=== PATIENT | female | born 1940 | race Caucasian/White ===

== ENCOUNTER 2020-09-04 18:23 | Emergency (ER) | payer MEDICARE, MEDICAID, SELFPAY ==
[2020-09-04 18:38] VITALS: BP 137/67; PULSE 66; RESP 18; TEMP 36.6; O2SAT 97; BMI 24.7
--- NOTE | 2020-09-04 18:50 | W.ED.EXTPRO ---
HPI - Extremity Problem General: Chief complaint: Extremity Injury, Upper Stated complaint: extremity injury, finger Time Seen by Provider: 09/04/20 18:49 History of Present Illness: HPI Narrative: 80-year-old female patient presents to the emergency department with right hand pain. She reports fell backwards at home while taking out the trash, her hand hit the floor. She states went to [facility], x-rays were completed, I do not have results of those. She reports pain to the dorsal right hand only, denies neck pain back pain or other injuries that occurred with the fall. She did not hit her head. States did not lose consciousness. Fall occurred at 2 PM today. MD Complaint: extremity pain (rt hand) Onset (ago): hour(s) (3) Pain Consistency: constant Location: right and upper extremity Severity scale (1-10): 4 Quality: aching and dull Relieving factors: rest Exacerbating factors: range of motion Associated symptoms: Reports no associated symptoms; Deny chest pain, fever(s) or rash Review of Systems General: Reports: 10 or more systems reviewed and unremarkable except in HPI and below Const: Denies: fever(s), chills or diaphoresis Eyes: Denies: blurry vision or eye redness ENMT: Denies: throat pain, dental pain or disequilibrium Card: Denies: chest pain, palpitations or irregular heart rhythm Resp: Denies: dyspnea, productive cough, non-productive cough or wheezing GI: Denies: abdominal pain, nausea or vomiting : Denies: difficulty voiding or dysuria Musc: Reports: joint pain (rt dorsal hand); Denies: neck pain, back pain, muscle cramps or muscle weakness Skin/Breast: Denies: rash or pruritus Neuro: Denies: headache(s), weakness in extremities or behavioral changes Psych: Denies: anxiety or depression John Paul/Lymph: Denies: easy bruising Physical Exam Const: COMMON NORMALS: no acute distress, patient oriented x3, healthy appearing and alert GENERAL APPEARANCE: cooperative, comfortable and well hydrated HENMT: COMMON NORMALS: normocephalic, Normal external nose present and moist oral mucous membranes HEAD & SCALP: normocephalic NOSE: Normal external nose present Eye: COMMON NORMALS: Equal, round and reactive pupils present and EOMs intact bilaterally GENERAL EYE: appearance normal, both eyes and all related structures PUPIL: Yes Equal, round and reactive pupils present Neck/C-Spine: COMMON NORMALS: full ROM and no lymphadenopathy GENERAL: Yes normal visual inspection and Yes trachea midline CERVICAL SPINE: Yes cervical ROM normal, No pain with cervical ROM, No Cervical spine tenderness and No Paracervical muscle tenderness Lymph: LYMPHATIC: no lymphadenopathy noted Chest: COMMONS NORMALS: normal inspection of the chest Resp: COMMON NORMALS: normal respiratory effort and clear to auscultation bilaterally EFFORT & INSPECTION: Yes able to speak in complete sentences AUSCULTATION: clear to auscultation bilaterally Cardio: COMMON NORMALS: regular rhythm, S1 normal heart sound present, S2 normal heart sound present and Peripheral pulses 2+ throughout RHYTHM: regular rhythm HEART SOUNDS: S1 normal heart sound present and S2 normal heart sound present PERIPHERAL PULSES: Peripheral pulses 2+ throughout GI: COMMON NORMALS: Soft to palpation and non-tender INSPECTION: Yes normal to inspection PALPATION: Yes Soft to palpation : COMMON NORMALS: Yes no CVA tenderness BLADDER/KIDNEY EXAM: Yes no CVA tenderness Back/Pelvis: COMMON NORMALS: no CVA tenderness, thoracic and lumbar spine normal to inspection, no thoracic nor lumbar tenderness and thoraco-lumbar ROM normal THORACIC SPINE/UPPER BACK: No thoracic spinal tenderness and No paraspinal muscle spasm LUMBAR SPINE/LOWER BACK: No lumbar spinal tenderness and No paraspinal muscle spasm PELVIS: Yes buttocks normal SACROILIAC JOINTS: Yes SI joints normal Extremity: COMMON NORMALS: normal to inspection and capillary refill normal GENERAL: Yes normal exam except as noted RIGHT UPPER EXTREMITY: Yes hand & digits (ecchymosis to the dorsal rt hand, along 4th & 5th MCP, pain with movement of the fourth and fifth PIP. Distal circulation intact, negative ecchymosis palmar, pronation supination of the right upper extremity noted, negative wrist pain.) Neuro: COMMON NORMALS: patient oriented x3 and no focal motor deficits SENSORIUM/ORIENTATION: Yes alert Psych: COMMON NORMALS: mental status grossly normal, Normal thought process present and cooperative ACTIVITY/MOTOR BEHAVIOR: Yes appropriate eye contact THOUGHT PROCESS: Normal thought process present Skin: COMMON NORMALS: no rashes or lesions noted and turgor normal GENERAL SKIN EXAM: no rashes or lesions noted and turgor normal Procedures Nerve Block Nerve Block 1: Time out performed: Yes Local Anesthetic: lidocaine 1% Amount of anesthesia used (mL): 10 Side: right Nerve Blocks: digital (4th-5th distal MCP) and hematoma block Procedure Successful: Yes Patient Tolerated Procedure: well Complications: none Orthopedic Fracture Reduction Fracture #1: Time Out Performed: Yes Side: right Fracture Reduction Location: metacarpal (5th) Analgesia: hematoma block Technique: direct manipulation and traction/counter-traction Post Reduction X-rays Demonstrate: acceptable reduction (difficulty with alignment, completed to the best of my ability) Post-reduction neuro exam: intact Post-reduction vascular exam: intact Splint Applied: Yes Patient Tolerated Procedure: well Orthopedic Splinting/Casting Injury #1: Side: right Upper Extremity Injury Location: hand Upper Extremity Immobilizer: sling/shoulder immobilizer and ulnar gutter Lower Extremity Immobilizer: Gideon wrap Course ED course: Initial x-ray discussed with Dr. Keene, advised to proceed with reduction, hematoma block completed, tolerated reduction well, postreduction films visualized by Dr. Long, patient placed in ulnar gutter splint, will have appropriate follow-up with orthopedic surgery. Questions were answered, results of x-rays reviewed. Vital Signs: Vital signs: Vital Signs Temperature 97.8 F 09/04/20 18:38 Pulse Rate 74 09/04/20 19:21 Respiratory Rate 18 09/04/20 18:38 Blood Pressure 137/67 09/04/20 18:38 Pulse Oximetry 97 09/04/20 18:38 MDM - Extremity (Nontraumatic) Imaging Data^: Xray Ortho: Radiologist's impression: [place] [address] XRay Report Signed Patient: Dai Valderrama Unit #: [id number] : 1940 Age/Sex: 80 / F ADM Date: 09/04/20 Loc: ER Room/Bed: Attending Dr: Ordering Provider/Ordering MD: Annette Novak Date of Service: 09/04/20 Procedure(s): XR hand RT min 3V* [id number] Accession Number(s): [id number] Report Number: [id number] PROCEDURE INFORMATION: Exam: XR Right Hand Exam date and time: 09/04/2020 7:12 PM Age: 80 years old Clinical indication: Injury or trauma; Fall; Blunt trauma (contusions or hematomas); Hand; Right; Additional info: Right hand pain S/P fall TECHNIQUE: Imaging protocol: XR Right hand. Views: 3 or more views. COMPARISON: No relevant prior studies available. FINDINGS: Bones/joints: Spiral fracture distal diaphysis 5th metacarpal with complete volar displacement and angulation upwards of 80 degrees. Moderately advanced primary osteoarthritis. Osteopenia/osteoporosis. Soft tissues: Soft tissue swelling. XR/XR hand RT min 3V* [id number] IMPRESSION: 1. Spiral fracture distal diaphysis 5th metacarpal with complete volar displacement and angulation upwards of 80 degrees. 2. Soft tissue swelling Dictated By: Pritesh Cifuentes Signed By: Pritesh Cifuentes Signed Date/Time: 09/04/201929 DD/ 27 Other Xray: Radiologist's impression: [address] [address] XRay Report Signed Patient: Dai Valderrama Unit #: [id number] : 1940 Age/Sex: 80 / F ADM Date: 09/04/20 Loc: ER Room/Bed: Attending Dr: Ordering Provider/Ordering MD: Annette Novak Date of Service: 09/04/20 Procedure(s): XR hand RT 2V 01023 Accession Number(s): [id number] Report Number: [id number] PROCEDURE INFORMATION: Exam: XR Right Hand Exam date and time: 09/04/2020 7:50 PM Age: 80 years old Clinical indication: Injury or trauma; Fall; Blunt trauma (contusions or hematomas); Hand; Right; Additional info: Post reduction film TECHNIQUE: Imaging protocol: XR Right hand. Views: 1 or 2 views. COMPARISON: CR XR hand RT min 3V* [id number] 09/04/2020 7:00 PM FINDINGS: Bones/joints: No visible significant interval change spiral fracture distal diaphysis 5th metacarpal with complete volar displacement and angulation upwards of 80 degrees. Moderately advanced primary osteoarthritis. Osteopenia/osteoporosis. Soft tissues: Soft tissue swelling. XR/XR hand RT 2V 50570 IMPRESSION: 1. No significant interval change spiral fracture distal diaphysis 5th metacarpal with complete volar displacement and angulation upwards of 80 degrees. 2. Soft tissue swelling Dictated By: Pritehs Cifuentes Signed By: Pritesh Cifuentes Signed Date/Time: 09/04/202018 DD/ 16 Discharge Plan Discharge Patient Disposition: Home Clinical Impression: Fall against object Fracture, metacarpal shaft Qualifiers: Encounter type: initial encounter Metacarpal bone: fifth Fracture type: closed Fracture alignment: displaced Laterality: right Qualified Code(s): S62.326A - Displaced fracture of shaft of fifth metacarpal bone, right hand, initial encounter for closed fracture Condition: Stable Discharge Orders: Discharge Order (Routine); Ordered 09/04/20 Ordered By: Annette Novak Referrals: Franck Valderrama MD [Primary Care Provider] - Discharge Diet: Usual diet Discharge Activity: Limit activity as instructed Patient Instructions: Hand Fracture (ED), Splint Care (ED), Fall Prevention (ED) Activity Restrictions/Additional Instructions: Social service will contact you with an appointment with orthopedic specialty Keep the splint on to prevent further displacement of the fracture Do not utilize the right hand until follow-up return to the emergency department if you develop increased right arm/hand pain You may take Tylenol, 1 g, 3 times daily as needed for pain Keep the right arm elevated as this will help with pain, may apply cool compresses such as ice packs to the area to help reduce swelling. Coding Level of Care Code ED Transmission Inspector for Geeta Tavarez Exam Comprehensive
--- NOTE | 2020-09-04 19:15 | XRR_ITS ---
PROCEDURE INFORMATION: Exam: XR Right Hand Exam date and time: 09/04/2020 7:50 PM Age: 80 years old Clinical indication: Injury or trauma; Fall; Blunt trauma (contusions or hematomas); Hand; Right; Additional info: Post reduction film TECHNIQUE: Imaging protocol: XR Right hand. Views: 1 or 2 views. COMPARISON: CR XR hand RT min 3V* [id number] 09/04/2020 7:00 PM FINDINGS: Bones/joints: No visible significant interval change spiral fracture distal diaphysis 5th metacarpal with complete volar displacement and angulation upwards of 80 degrees. Moderately advanced primary osteoarthritis. Osteopenia/osteoporosis. Soft tissues: Soft tissue swelling. XR/XR hand RT 2V [id number] IMPRESSION: 1. No significant interval change spiral fracture distal diaphysis 5th metacarpal with complete volar displacement and angulation upwards of 80 degrees. 2. Soft tissue swelling
[2020-09-04 19:21] VITALS: PULSE 74
[2020-09-04] MEDS: lidocaine 1% INJ 20 mL INJECTION (19:24)
[2020-09-04] MEDS: acetaminophen 500 mg Tablet 1000 MG PO (20:10)
[2020-09-04 21:28] VITALS: BP 144/75; PULSE 86; RESP 18; O2SAT 96
--- NOTE | 2020-09-04 21:39 | PC.NURSE ---
i agree with this assessment
--- NOTE | 2020-09-07 09:06 | DCPLANNER ---
Addendum entered by Evie Ortega 09/07/20 14:14: Pat from ortho called complex case manager stating that after patients records were reviewed that it was determined that patient will need to follow up with a hand specialist in [place]. application development project manager spoke with patients daughter, and was told to send referral to [facility]. application development project manager faxed patients information to [facility], phone number is [phone]. Clinic will call patient with appointment information. Original Note: application development project manager had message to schedule a follow up appointment with ortho. application development project manager called the ortho clinic, spoke with Windy, gave clinic patients information. application development project manager was told that patients information would be printed and reviewed. Clinic will call patient with appointment information.
--- NOTE | 2020-09-10 13:49 | DCPLANNER ---
Patient had a follow up appointment scheduled for 09.09.20 with [facility] - patient did attend appointment.
== END 2020-09-04 21:28 | disposition home or self-care (01) ==
PROVIDERS: Emergency Provider Nurse Practitioner Family; PCP Urology
DX: S62.326A Displaced fracture of shaft of fifth metacarpal bone, right hand, initial encounter for closed fracture (principal); W19.XXXA Unspecified fall, initial encounter
CPT/HCPCS: 12345; 26605; 29125; 73120; 73130; 99283

== ENCOUNTER 2020-12-30 13:46 | Emergency (ER) | payer MEDICARE, MEDICAID, SELFPAY ==
[2020-12-30 13:54] VITALS: BP 122/63; PULSE 60; RESP 16; TEMP 36.3; O2SAT 96; BMI 25.1
--- NOTE | 2020-12-30 14:06 | XR_ITS ---
WS: [id number] Exam: XR hip LT 2-3V wo/w pel* [id number] Date/Time of Exam: 12/30/2020 2:11 PM Reason For Exam: fall/trauma A hip prosthesis is in place. No sign of fracture or loosening. Soft tissues are unremarkable. XR/XR hip LT 2-3V wo/w pel* [id number] IMPRESSION: 1. Left hip prosthesis in place without evidence of fracture, loosening or oth er complication.
--- NOTE | 2020-12-30 14:07 | ED_ITS ---
HPI - Fall General: Chief Complaint: Fall Stated Complaint: fall, hit head, suspects broken hip Time Seen by Provider: 12/30/20 13:56 Source: patient and family Mode of arrival: EMS Limitations: no limitations History of Present Illness: HPI Narrative: Patient is an 80-year-old female who presents to the ED today along with her daughter for evaluation following a fall. Patient tells me she was in the kitchen cooking when she accidentally dropped a plastic bowl. She states she took a few steps backwards to bend over and pick it up and when she did so, she fell. The daughter heard the fall and immediately came into the kitchen where she found her mother on the floor. Patient states she did strike the posterior aspect of her head but there was no LOC. Daughter confirms this. Daughter states patient has done this several times where she steps backwards and then loses her balance and falls. Patient did not have any lightheadedness, dizziness, chest pain, shortness of breath prior to her fall. She currently is complaining of left hip pain. She has not been ambulatory since the fall. She is also complaining of some pain to her left posterior scalp. She denies neck or back pain. Denies any other injuries. MD complaint: fall Onset (ago): hour(s) Fall from: standing Fall witnessed: no Place fall occurred: home Loss of consciousness: None Prolonged down time: no Symptoms prior to fall: none Context: tripped/slipped (lost balance ) Location of injury: head Location of injury - extremities: Left: thigh (hip) Associated symptoms-after fall: Reports neck pain (chronic-at baseline); Denies abdominal pain, chest pain, confusion, headache(s), hematuria or lightheadedness Review of Systems Const: Denies: fever(s), chills, body aches, fatigue or malaise Eyes: Denies: change in vision, blurry vision, photophobia, floaters or seeing flashes Card: Denies: chest pain, palpitations, irregular heart rhythm, edema, swelling of feet/ankles, lightheadedness, syncope, pre-syncope, dyspnea on exertion, orthopnea, leg pain with exertion or acrocyanosis Resp: Denies: dyspnea, productive cough, non-productive cough, hemoptysis or chest congestion GI: Denies: abdominal pain, nausea or vomiting : Denies: flank pain, dysuria or hematuria Musc: Reports: neck pain (chronic-at baseline), back pain (chronic-at baseline) and joint pain (L hip); Denies: extremity pain, extremity swelling or joint swelling Neuro: Denies: headache(s), numbness in extremities, weakness in extremities, sensory changes, dizziness, confusion or Slurred speech present Physical Exam Const: COMMON NORMALS: no acute distress, average body habitus, patient oriented x3, no limitations, healthy appearing, alert and well nourished GENERAL APPEARANCE: cooperative ORIENTATION/CONSCIOUSNESS: Yes awake, Yes oriented to person, Yes oriented to place and Yes oriented to time HENMT: COMMON NORMALS: normocephalic and atraumatic HEAD & SCALP: normal to inspection, normocephalic and atraumatic FACE & SINUS: normal facial exam OTHER: has some tenderness to L parietal scalp; no abrasions/lacerations present; possible small amount swelling Eye: COMMON NORMALS: Equal, round and reactive pupils present and EOMs intact bilaterally GENERAL EYE: appearance normal, both eyes and all related structures PUPIL: Yes Equal, round and reactive pupils present Neck/C-Spine: COMMON NORMALS: full ROM CERVICAL SPINE: Yes cervical ROM normal, Yes Cervical spine tenderness (mid to lower spine; she reports chronic neck pain), No step off deformity and No Paracervical muscle tenderness Chest: COMMONS NORMALS: normal inspection of the chest and normal palpation of entire chest wall Resp: COMMON NORMALS: normal respiratory effort and clear to auscultation bilaterally AUSCULTATION: clear to auscultation bilaterally Cardio: COMMON NORMALS: regular rate and regular rhythm RATE: regular rate RHYTHM: regular rhythm GI: COMMON NORMALS: Normal to inspection, nondistended, normoactive bowel sounds present, Soft to palpation, non-tender, No hepatosplenomegaly present and no masses PALPATION: Yes Soft to palpation and Yes No hepatosplenomegaly present Back/Pelvis: COMMON NORMALS: thoracic and lumbar spine normal to inspection, no thoracic nor lumbar tenderness and thoraco-lumbar ROM normal Extremity: NARRATIVE EXTREMITY EXAM: TTP L lateral hip; can flex knee and bring upward towards chest fairly well; both legs seem to externally rotate slightly; there is no shortening; NV intact; she has no tenderness to L knee or lower leg; no tenderness to R LE or either UE Neuro: HENRI COMA SCALE: document GCS findings [place] coma scale eye opening: Spontaneous Henri coma scale verbal response: Orientated [place] coma scale motor response: Obey commands Henri coma scale total score: 15 COMMON NORMALS: patient oriented x3, CN's II-XII intact bilaterally, moves all extremities, no focal motor deficits and no sensory deficits noted SENSORIUM/ORIENTATION: Yes alert, Yes oriented to person, Yes oriented to place and Yes oriented to time Skin: NARRATIVE SKIN EXAM: small area about 2 inches of ecchymosis to L lateral hip; otherwise normal skin exam Course Vital Signs: Vital signs: Vital Signs Temperature 97.3 F L 12/30/20 13:54 Pulse Rate 61 12/30/20 15:45 Respiratory Rate 15 12/30/20 15:45 Blood Pressure 122/73 12/30/20 15:45 Pulse Oximetry 95 12/30/20 15:45 MDM - Fall MDM Narrative: Medical decision making narrative: Patient here following a fall. CT head and cervical spine are negative. There are no visualized fractures or loosening of patient's hardware on her left hip/pelvic films. Patient was able to ambulate with a walker here in the emergency department. Patient tells me she has a walker at home that she will continue to use. Family in the room states they will continue to care for her and will help with ambulation as needed. Recommend she follow-up with PCP in the next 3 to 5 days if pain persists. She states she will take Tylenol for pain. Also states she has stronger pain medications at home she can take for severe pain-recommend she take this as directed on the label. Imaging Data^: XR L hip/pelvis: Radiologist's impression: [address] [address] XRay Report Signed Patient: Dai Valderrama Unit #: [id number] : 1940 Age/Sex: 80 / F ADM Date: 12/30/20 Loc: ER Room/Bed: Attending Dr: Ordering Provider/Ordering MD: Brenda Roque Date of Service: 12/30/20 Procedure(s): XR hip LT 2-3V wo/w pel* [id number] Accession Number(s): [id number] Report Number: [id number] WS: [id number] Exam: XR hip LT 2-3V wo/w pel* [id number] Date/Time of Exam: 12/30/2020 2:11 PM Reason For Exam: fall/trauma A hip prosthesis is in place. No sign of fracture or loosening. Soft tissues are unremarkable. XR/XR hip LT 2-3V wo/w pel* [id number] IMPRESSION: 1. Left hip prosthesis in place without evidence of fracture, loosening or other complication. Dictated By: Speedy Crooks DO Signed By: Speedy Crooks DO Signed Date/Time: 12/30/201422 DD/ 21 CT Head: Radiologist's impression: [place] [address] CT Scan Report Signed Patient: Dai Valderrama #: [id number] : 1940Acct#:[id number] Age/Sex: 80 / FADM Date: 12/30/20 Loc: ERRoom/Bed: Attending Dr: Ordering Provider/Ordering MD: Brenda Roque Date of Service: 12/30/20 Procedure(s): CT head wo con* [id number] Accession Number(s): [id number] Report Number: [id number] WS: [id number] CT HEAD TECHNIQUE: Noncontrast CT of the head obtained from the skullbase to the vertex. CLINICAL INFORMATION: trauma COMPARISON: 3 20,018 DLP: 886.[address] scans at [facility] use at least one of these dose optimization techniques: automated exposure control; mA and/or kV adjustment per patient size (includes targeted exams where dose is matched to clinical indication); or iterative reconstruction. FINDINGS: No evidence of intracranial hemorrhage or mass effect. Ventricular system and basal cisterns are patent. Mild small vessel changes with moderate parenchymal volume loss. No extra-axial fluid collections. No evidence of mass or mass effect. Normal maria-white differentiation. Paranasal sinuses and mastoid air cells are well aerated. .Normal visualized soft tissues. CT/CT head wo con* [id number] IMPRESSION: 1. No evidence of intracranial hemorrhage or mass effect. 2. Mild small vessel changes. Moderate parenchymal volume loss. 3. No acute intracranial findings. Dictated By:Rex Appiah MD Signed By:Rex Appiah MDSigned Date/Time:12/30/201545 DD/ 42 CT cervical: Radiologist's impression: [address] [place] [address] CT Scan Report Signed Patient: Dai Valderrama Unit #: [id number] : 1940 Age/Sex: 80 / F ADM Date: 12/30/20 Loc: ER Room/Bed: Attending Dr: Ordering Provider/Ordering MD: Brenda Roque Date of Service: 12/30/20 Procedure(s): CT cervical spin wo con* [id number] Accession Number(s): [id number] Report Number: [id number] WS: [id number] CT CERVICAL TRAUMA TECHNIQUE: Noncontrast CT of the cervical spine with coronal and sagittal reformatted images. CLINICAL INFORMATION: fall/trauma COMPARISON: None. DLP: 485.[address] scans at [facility] use at least one of these dose optimization techniques: automated exposure control; mA and/or kV adjustment per patient size (includes targeted exams where dose is matched to clinical indication); or iterative reconstruction. FINDINGS: Straightening of the normal cervical lordosis. Normal craniocervical junction. Normal C1-C2 articulation. Dens is normal in appearance. Normal occipital condyles. No high- grade spinal canal narrowing. Normal C1 ring. No evidence of acute fracture or dislocation. Moderate spondylitic changes. Disc osteophyte complexes worse at C3-C4 C4-C5 and C5-C6 with mild/moderate central canal stenosis. Slight anterolisthesis C6 C6 on C7. Normal prevertebral soft tissues. Mastoids air cells are well aerated. CT/CT cervical spin wo con* [id number] IMPRESSION: 1. No evidence of acute fracture or dislocation. 2. Moderate spondylitic changes. Dictated By: Rex Appiah MD Signed By: Rex Appiah MD Signed Date/Time: 12/30/20 155 DD/ 45 Discharge Plan Discharge Patient Disposition: Home Clinical Impression: Left hip pain, Minor traumatic injury of head with normal mental status Fall Qualifiers: Encounter type: initial encounter Qualified Code(s): W19.XXXA - Unspecified fall, initial encounter Condition: Stable Prescriptions: No Action levothyroxine 75 mcg tablet 75 mcg PO DAILY@0830 RF: 0 citalopram 20 mg tablet 20 mg PO DAILY@0830 RF: 0 raloxifene 60 mg tablet 60 mg PO DAILY@0830 RF: 0 Discharge Orders: Discharge ED (Routine); Ordered 12/30/20 Ordered By: Brenda Roque Patient Instructions: Opioid Safety Activity Restrictions/Additional Instructions: [facility] is committed to fighting the nationwide opiate epidemic. We are providing ALL patients with information regarding opiate safety. If you received opiate pain medication during your stay or if you received a prescripti on for opiate pain medication-please review this handout. If not, you may disregard. Thank you. As discussed use your walker at all times for ambulation. Family may also help assist with ambulation and transferring if needed. Return to the emergency department immediately for worsening or severe pain, inability to ambulate, or any other concerns you may have. Please follow-up with primary care in the next 3 to 5 days if pain does not improve. I hope you begin to feel better soon. Coding Level of Care Code ED Social Economist for Geeta Tavarez Exam Comprehensive
--- NOTE | 2020-12-30 14:07 | CT_ITS ---
WS: [id number] CT HEAD TECHNIQUE: Noncontrast CT of the head obtained from the skullbase to the vertex. CLINICAL INFORMATION: trauma COMPARISON: 3 20,018 DLP: 886.[address] scans at [facility] use at least one of these dose optimization techniques: automat ed exposure control; mA and/or kV adjustment per patient size (includes targeted exams where dose is matched to clinical indication); or iterative reconstruction. FINDINGS: No evidence of intracranial hemorrhage or mass effect. Ventricular system and basal cisterns are newell nt. Mild small vessel changes with moderate parenchymal volume loss. No extra-axial fluid collections . No evidence of mass or mass effect. Normal maria-white differentiation. Paranasal sinuses and mastoid air cells are well aerated. .Normal visualized soft tissues. CT/CT head wo con* [id number] IMPRESSION: 1. No evidence of intracranial hemorrhage or mass effect. 2. Mild small vessel changes. Moderate parenchymal volume loss. 3. No acute intracranial findings.
--- NOTE | 2020-12-30 14:07 | CT_ITS ---
WS: [id number] CT CERVICAL TRAUMA TECHNIQUE: Noncontrast CT of the cervical spine with coronal and sagittal reformatted images. CLINICAL INFORMATION: fall/trauma COMPARISON: None. DLP: 485.[address] scans at [facility] use at least one of these dose optimization techniques: automat ed exposure control; mA and/or kV adjustment per patient size (includes targeted exams where dose is matched to clinical indication); or iterative reconstruction. FINDINGS: Straightening of the normal cervical lordosis. Normal craniocervical junction. Normal C1-C2 articulat ion. Dens is normal in appearance. Normal occipital condyles. No high-grade spinal canal narrowing. N ormal C1 ring. No evidence of acute fracture or dislocation. Moderate spondylitic changes. Disc osteo phyte complexes worse at C3-C4 C4-C5 and C5-C6 with mild/moderate central canal stenosis. Slight ante rolisthesis C6 C6 on C7. Normal prevertebral soft tissues. Mastoids air cells are well aerated. CT/CT cervical spin wo con* [id number] IMPRESSION: 1. No evidence of acute fracture or dislocation. 2. Moderate spondylitic changes.
[2020-12-30 15:45] VITALS: BP 122/73; PULSE 61; RESP 15; O2SAT 95
[2020-12-30 16:38] VITALS: BP 122/73; PULSE 61; RESP 16; O2SAT 96
== END 2020-12-30 16:39 | disposition home or self-care (01) ==
PROVIDERS: Emergency Provider Physician Assistant; PCP Urology
DX: M25.552 Pain in left hip (principal); S09.8XXA Other specified injuries of head, initial encounter; W19.XXXA Unspecified fall, initial encounter
CPT/HCPCS: 70450; 72125; 73502; 99283

== ENCOUNTER 2023-04-01 15:45 | Inpatient (IN) | payer MEDICARE, MEDICAID, SELFPAY ==
[2023-04-01 15:54] VITALS: BP 99/58; PULSE 67; RESP 16; TEMP 36.6; O2SAT 98; BMI 22.0
--- NOTE | 2023-04-01 17:38 | XRR_ITS ---
PROCEDURE INFORMATION: Exam: XR Right Hip Exam date and time: 04/01/2023 5:51 PM Age: 83 years old Clinical indication: Injury or trauma; Fall; Blunt trauma (contusions or hematomas); Right; Prior surgery; Surgery date: 6+ months; Surgery type: Hip replacement; Additional info: Fall pain TECHNIQUE: Imaging protocol: Radiologic exam of the right hip. Views: 1 view hip with pelvis when performed. COMPARISON: CR XR hip RT 2-3V wo/w pel* [id number] 01/24/2018 4:13 PM FINDINGS: Bones/joints: Right hip arthroplasty. Adjacent to the femoral medullary stem of the arthroplasty, there is an acute fracture involving the lateral cortex of the proximal femoral diaphysis, with approximately 7 mm cortical distraction. The bones are osteopenic. Soft tissues: Unremarkable. XR/XR hip RT 2-3V wo/w pel* [id number] IMPRESSION: Acute, mildly displaced fracture involving the lateral cortex of the proximal femur, adjacent to femoral stem right hip arthroplasty.
--- NOTE | 2023-04-01 17:38 | CTR_ITS ---
PROCEDURE INFORMATION: Exam: CT Head Without Contrast Exam date and time: 04/01/2023 6:04 PM Age: 83 years old Clinical indication: Injury or trauma; Fall; Blunt trauma (contusions or hematomas); Consciousness not specified; Additional info: Fall trauma pain TECHNIQUE: Imaging protocol: Computed tomography of the head without contrast. Radiation optimization: All CT scans at this facility use at least one of these dose optimization techniques: automated exposure control; mA and/or kV adjustment per patient size (includes targeted exams where dose is matched to clinical indication); or iterative reconstruction. REPORTING DATA: Count of CT and Cardiac NM exams in prior 12 months: This patient has received 0 known CTs and 0 known cardiac nuclear medicine studies in the 12 months prior to the current study. COMPARISON: CT head wo con* [id number] 12/30/2020 3:31 PM RADIATION DOSE METRICS: Total DLP (mGy-cm): 1144.78 FINDINGS: Brain: There are global involutional changes of the brain which are in keeping with the patient's age. Periventricular hypodensities are nonspecific but most likely reflect chronic microvascular ischemic disease. There is no acute intracranial hemorrhage or abnormal extra-axial fluid collection identified. There is no intracranial mass effect or shift of midline structures. The maria-white differentiation is preserved throughout. There is no sulcal effacement. The basilar cisterns are open. Cerebral ventricles: No hydrocephalus or ventricular effacement. Paranasal sinuses: There is an air-fluid level in the right sphenoid sinus, with mild mucosal thickening. Consider acute bacterial sinusitis. Mastoid air cells: Minimal left mastoid effusion. Bones/joints: No calvarial fracture or destructive osseous lesions are seen. Soft tissues: Right parietooccipital scalp injury. CT/CT head wo con* [id number] IMPRESSION: 1. No acute intracranial pathology demonstrated by CT. 2. Consider acute bacterial sinusitis.
--- NOTE | 2023-04-01 17:39 | ED_ITS ---
Documented by User: Eric Oshea DO 04/01/23 17:43 HPI - Fall General: Chief Complaint: Fall Stated Complaint: Fall, head and hip pain Time Seen by Provider: 04/01/23 17:20 History of Present Illness: Patient presents to the ER with a fall with head and hip pain. Patient struck her head on a piece of wood. Denies any loss of consciousness or vomiting. However patient was nauseous. Patient does take aspirin. Patient complains of right hip pain and is unable to stand secondary to pain. MD complaint: fall Onset (ago): day(s) (Earlier today) Fall from: standing Loss of consciousness: None Context: tripped/slipped Location of injury: head (And right hip) Quality: aching Associated symptoms-after fall: Reports difficulty walking Review of Systems General: Reports: 10 or more systems reviewed and unremarkable except in HPI and below Neuro: Reports: difficulty walking Physical Exam Const: COMMON NORMALS: no acute distress, average body habitus, patient oriented x3, no limitations, healthy appearing, alert and well nourished HENMT: COMMON NORMALS: hearing grossly normal bilaterally, Normal external nose present and moist oral mucous membranes NOSE: Normal external nose present OTHER: Large hematoma to posterior occipital region minimal tenderness with palpation no crepitus Eye: COMMON NORMALS: Equal, round and reactive pupils present, EOMs intact bilaterally, conjunctivae normal and no scleral icterus CONJUNCTIVA: Yes conjunctivae normal PUPIL: Yes Equal, round and reactive pupils present Neck/C-Spine: COMMON NORMALS: full ROM, no lymphadenopathy, supple, no meningeal signs, no JVD and Thyroid normal THYROID: Thyroid normal Chest: COMMONS NORMALS: normal inspection of the chest and normal palpation of entire chest wall Resp: COMMON NORMALS: normal respiratory effort, No retractions, No use of accessory muscles and clear to auscultation bilaterally AUSCULTATION: clear to auscultation bilaterally Cardio: COMMON NORMALS: no JVD, regular rate, regular rhythm, S1 normal heart sound present, S2 normal heart sound present, No gallops present (Cardio), No clicks present (Cardio), No murmurs present (Cardio) and No rub (Cardio) RATE: regular rate RHYTHM: regular rhythm HEART SOUNDS: S1 normal heart sound present and S2 normal heart sound present GI: COMMON NORMALS: Normal to inspection, nondistended, normoactive bowel sounds present, Soft to palpation, non-tender, No hepatosplenomegaly present and no masses PALPATION: Yes Soft to palpation and Yes No hepatosplenomegaly present : COMMON NORMALS: Yes no CVA tenderness BLADDER/KIDNEY EXAM: Yes no CVA tenderness Back/Pelvis: COMMON NORMALS: no CVA tenderness Extremity: NARRATIVE EXTREMITY EXAM: Exquisite tenderness to palpation over right hip region. Neuro: COMMON NORMALS: patient oriented x3 SENSORIUM/ORIENTATION: Yes alert MENINGEAL SIGNS: Yes no meningeal signs Course Vital Signs: Vital signs: Vital Signs Temperature 97.8 F 04/01/23 15:54 Pulse Rate 56 L 04/01/23 18:07 Respiratory Rate 14 04/01/23 18:07 Blood Pressure 95/37 04/01/23 18:07 Pulse Oximetry 95 04/01/23 18:07 Oxygen Delivery Me thod Room Air 04/01/23 18:07 MDM - Fall Differential Diagnosis Likely concussion without loss of consciousness; Unlikely syncope, dislocation of shoulder region, fracture of wrist, compression fracture or concussion with loss of consciousness Medical Records I reviewed the patient's medical records. Lab Data I reviewed the patient's lab results. 04/01/23 18:45 04/01/23 18:[address] 04/01/23 17:38 IMPRESSION: 1. No acute intracranial pathology demonstrated by CT. 2. Consider acute bacterial sinusitis. Hip/Pelvis X-Ray 04/01/23 17:38 IMPRESSION: Acute, mildly displaced fracture involving the lateral cortex of the proximal femur, adjacent to femoral stem right hip arthroplasty. Laboratory Results WBC 7.9 10^3/uL (4.0-10.0) 04/01/23 18:45 RBC 3.74 10^6/uL (4.1-5.3) L 04/01/23 18:45 Hgb 11.1 g/dL (11.5-15.3) L 04/01/23 18:45 Hct 35.3 % (37.0-47.0) L 04/01/23 18:45 MCV 94.4 fl (81-99) 04/01/23 18:45 MCH 29.7 pg (28.0-34.0) 04/01/23 18:45 MCHC 31.4 g/dL (30.0-36.0) 04/01/23 18:45 RDW 13.6 % (12.1-15.1) 04/01/23 18:45 Plt Count 194 10^3/cmm (130-400) 04/01/23 18:45 MPV 10.9 fL (7.4-10.4) H 04/01/23 18:45 Neut % (Auto) 83.3 % 04/01/23 18:45 Lymph % (Auto) 11.3 % 04/01/23 18:45 [place] % (Auto) 4.7 % 04/01/23 18:45 Eos % (Auto) 0.1 % 04/01/23 18:45 Baso % (Auto) 0.3 % 04/01/23 18:45 Neut # (Auto) 6.56 10^3/uL (1.8-7.7) 04/01/23 18:45 Lymph # (Auto) 0.9 10^3/uL (0.8-4.8) 04/01/23 18:45 [place] # (Auto) 0.4 10^3/uL (0.2-0.9) 04/01/23 18:45 Eos # (Auto) 0.0 10^3/uL (0.0-0.8) 04/01/23 18:45 Baso # (Auto) 0.0 10^3/uL (0.0-0.1) 04/01/23 18:45 Nucleated RBC % (auto) 0 % 04/01/23 18:45 Nucleated RBCs # 0.0 /100WBC 04/01/23 18:45 PT 15.50 SECONDS (12.1-14.9) H 04/01/23 18:45 INR 1.19 (0.8-1.2) 04/01/23 18:45 Discharge Plan Discharge Patient Disposition: Admitted As Inpatient Clinical Impression: Closed right hip fracture Condition: Stable Coding Level of Care Code ED Curriculum And Instruction Director for Geeta Tavarez Documented by User: Louie Humphrey MD 04/01/23 19:04 HPI - Fall General: Chief Complaint: Fall Stated Complaint: Fall, head and hip pain Time Seen by Provider: 04/01/23 17:20 Course Vital Signs: Vital signs: Vital Signs Temperature 97.8 F 04/01/23 15:54 Pulse Rate 56 L 04/01/23 18:07 Respiratory Rate 14 04/01/23 18:07 Blood Pressure 95/37 04/01/23 18:07 Pulse Oximetry 95 04/01/23 18:07 Oxygen Delivery Me thod Room Air 04/01/23 18:07 MDM - Fall Medical Decision Making Patient presents here with a hip fracture around her hardware from a fall no other injuries noted spoke to the hospitalist along with orthopedics and will admit at this time. Lab Data 04/01/23 18:45 04/01/23 18:[address] 04/01/23 17:38 IMPRESSION: 1. No acute intracranial pathology demonstrated by CT. 2. Consider acute bacterial sinusitis. Hip/Pelvis X-Ray 04/01/23 17:38
[2023-04-01 18:07] VITALS: BP 95/37; PULSE 56; RESP 14; O2SAT 95
--- NOTE | 2023-04-01 18:33 | XRR_ITS ---
PROCEDURE INFORMATION: Exam: XR Chest Exam date and time: 04/01/2023 7:13 PM Age: 83 years old Clinical indication: Injury or trauma; Fall TECHNIQUE: Imaging protocol: Radiologic exam of the chest. Views: 1 view. COMPARISON: CR XR chest 1V [id number] 01/23/2018 11:34 AM FINDINGS: Lungs: No alveolar consolidation is seen. Pleural spaces: No pleural effusion. No pneumothorax. Heart/Mediastinum: Cardiomegaly. Bones/joints: No acute displaced fracture is seen radiographically. XR/XR chest 1V portable [id number] IMPRESSION: 1. Cardiomegaly. 2. No acute fracture is seen radiographically.
--- NOTE | 2023-04-01 18:42 | ECG_ITS ---
[facility] Test Date: 2023-04-01 Pat Name: Dai Valderrama Department: Room: Gender: Female Study Manager: : 1940 Requested By: Louie Humphrey Order Number: [id number] Bernard MD: Simba Greco M.D. Measurements Intervals [place] Rate: 71 P: 0 OR: 0 QRS: 42 QRSD: 74 T: 65 QT: 411 QTc: 449 Interpretive Statements ATRIAL FIBRILLATION ABNORMAL RHYTHM ECG Compared to ECG 01/23/2018 11:55:21 Sinus rhythm no longer present First degree AV block no longer present Electronically Signed On 04-02-2023 8:01:52 CDT by Simba Greco M.D. [id number]
--- NOTE | 2023-04-01 18:46 | CTR_ITS ---
PROCEDURE INFORMATION: Exam: CT Right Lower Extremity Without Contrast, Hip Exam date and time: 04/01/2023 6:53 PM Age: 83 years old Clinical indication: Injury or trauma; Fall; Blunt trauma; Hip; Right; Additional info: Hip FX TECHNIQUE: Imaging protocol: CT of the right lower extremity without contrast was performed. Exam focused on the hip. Radiation optimization: All CT scans at this facility use at least one of these dose optimization techniques: automated exposure control; mA and/or kV adjustment per patient size (includes targeted exams where dose is matched to clinical indication); or iterative reconstruction. REPORTING DATA: Count of CT and Cardiac NM exams in prior 12 months: This patient has received 0 known CTs and 0 known cardiac nuclear medicine studies in the 12 months prior to the current study. COMPARISON: CR (PELVIS, ) 04/01/2023 5:51 PM RADIATION DOSE METRICS: Total DLP (mGy-cm): 276.7 FINDINGS: Bones/joints: There is a right hip arthroplasty. There is an acute comminuted fracture of the proximal femur, surrounding the femoral stem component. There is cortical displacement noted anteriorly. The fracture extends into the greater trochanter. It is not extending beyond the distal aspect of femoral stem. Linear lucency in the posterior acetabulum is felt to be related to beam hardening artifact. No definite acetabular or pubic ramus fracture is seen. Soft tissues: Superficial soft tissue swelling at the lateral aspect of the hip. CT/CT hip RT wo con* [id number] IMPRESSION: Acute comminuted fracture of the proximal femur, surrounding the femoral stem component of right hip arthroplasty, as above.
[2023-04-01 18:53] LABS: Basophils % 0.3 %; Eosinophils % 0.1 %; Hematocrit 35.3 % (37.0-47.0); Hemoglobin 11.1 g/dL (11.5-15.3); Lymphocytes # 0.9 10^3/uL (0.8-4.8); Lymphocytes % 11.3 %; Mean Corpuscular HGB Conc 31.4 g/dL (30.0-36.0); Mean Corpuscular Hemoglobin 29.7 pg (28.0-34.0); Mean Corpuscular Volume 94.4 fl (81-99); Mean Platelet Volume 10.9 fL (7.4-10.4); Monocytes # 0.4 10^3/uL (0.2-0.9); Monocytes % 4.7 %; Neutrophils # 6.56 10^3/uL (1.8-7.7); Neutrophils % 83.3 %; Nucleated Red Blood Cells % 0 %; Platelet Count 194 10^3/cmm (130-400); Red Blood Count 3.74 10^6/uL (4.1-5.3); Red Cell Distribution Width 13.6 % (12.1-15.1); White Blood Count 7.9 10^3/uL (4.0-10.0)
[2023-04-01 19:01] LABS: INR 1.19 (0.8-1.2)
[2023-04-01] MEDS: ondansetron 2 mg/ML SDV 2 mL 4 MG IVP (19:08)
[2023-04-01] MEDS: morphine 4 mg/mL SDV 1 mL IVP (19:09)
[2023-04-01 19:14] VITALS: BP 116/69; PULSE 70; RESP 18; O2SAT 96
[2023-04-01 19:16] LABS: Alanine Aminotransferase 12 U/L (0-33); Albumin Level 3.7 g/dL (3.5-5.2); Alkaline Phosphatase 56 U/L (35-105); Anion Gap 14.9 (5-19); Aspartate Amino Transferase 26 U/L (0-32); Blood Urea Nitrogen 18 mg/dL (8-23); Calcium 8.2 mg/dL (8.5-10.5); Carbon Dioxide 25 mmol/L (22-29); Chloride 104 mmol/L (98-107); Globulin 2.8 g/dL (1.3-4.6); Glucose 108 mg/dL (65-115); Osmolality Calculated 290 mOsm/kg (285-295); Potassium 4.9 mmol/L (3.5-5.1); Sodium 139 mmol/L (136-145); Total Bilirubin 0.5 mg/dL (0.15-1.2); Total Protein 6.5 g/dL (6.6-8.7)
--- NOTE | 2023-04-01 20:02 | PM.HP ---
Providers/Chief Complaint Admitting Physician: Minerva Slef MD Primary Care Provider: Mario Joshua MD Chief Complaint: Fall, head and hip pain History of Present Illness Dai Valderrama is a 83 year old female with history of hypothyroidism, depression who presented to the ER today after a fall at home. She states that she normally uses a rolling walker but today did not use 1. She was walking using her cane. The cane gave out and she fell down on the concrete and hit her head on the right occipital area. She lives alone at home. She had an alert button that she pushed and called her daughter who eventually brought her to the ER. Denies nausea vomiting diarrhea constipation chest pain, shortness of breath. States that normally she can walk without getting short of breath and considers herself pretty healthy. She also says I have a really good mind and I am sharp. In the ER head CT was done which did not show any intracranial pathology. There was air-fluid level in right sphenoid sinus with mild mucosal thickening. Consider acute bacterial sinusitis. Hip and pelvis x-ray showed acute mildly displaced fracture along the lateral cortex of proximal femur, adjacent to femoral stem right hip arthroplasty, chest x-ray showed cardiomegaly but no acute fractures. CT hip was also done which showed acute comminuted fracture of proximal femur surrounded the femoral stem component of right hip arthroplasty. Case was discussed with Dr. Bruno over the phone by ER doctor and he was consulted. Patient to be admitted for hip fracture at this time. WBC 7.9, hemoglobin 11.1, platelets 194, sodium 139, potassium 4.9, creatinine 0.9, calcium 8.2, Medications/Allergies Home Medications Medication Instructions Recorded Confirmed Last Taken Type citalopram 20 mg tablet 20 mg PO DAILY@82912/30/20 04/01/23 04/01/23 History levothyroxine 75 mcg tablet 75 mcg PO DAILY@82912/30/20 04/01/23 04/01/23 History raloxifene 60 mg tablet 60 mg PO DAILY@82912/30/20 04/01/23 04/01/23 History diclofenac sodium 1 % topical gel topical 04/01/23 Unknown History hydrocodone 5 mg-acetaminophen 325 1 - 2 tab PO Q4H PRN Pain 04/01/23 04/01/23 Unknown History mg tablet Allergies Allergy/AdvReac Type Severity Reaction Status Date / Time No Known Allergies Allergy Verified 04/01/23 20:55 Vitals/I&O/Wt Last Vital Signs Temp 97.8 F 04/01/23 15:54 Pulse 70 04/01/23 19:14 Resp 18 04/01/23 19:14 BP 116/69 04/01/23 19:14 Pulse Ox 96 04/01/23 19:14 O2 Del Method Room Air 04/01/23 18:07 Weight last 48 hrs Weight 65.771 kg Physical Exam Narrative: General: Alert oriented x3, patient seen laying in bed appearing comfortable at this time on room air. HEENT: Normocephalic, atraumatic, EOMI, no laceration on head noted. Cardio: Regular rate rhythm, normal S1-S2 Respiratory: Good bilateral air entry, no wheezes no rhonchi appreciated GI: Abdomen soft, nontender,, bowel sounds + Extremities: Significant swelling noted at right hip area. No erythema or bruise present at this time. Data 04/01/23 18:45 04/01/23 18:45 A&P Assessment and plan (1) Closed right hip fracture: (2) Hypothyroid: (3) Depression: Plan #Acute right hip fracture #Depression #Hypothyroidism ? Preop evaluation complete. Chest x-ray, EKG reviewed. As per interview patient is able to do 4 METS. She is not on insulin does not have a history of heart failure or hypertension. ? Continue levothyroxine 75 daily, continue citalopram 20 daily ? Orthopedic surgery consulted. N.p.o. at midnight for potential procedure in a.m. ? Check PT/INR preop labs in a.m. ? Awaiting recommendations from orthopedic surgery regarding further management. ? Admit as inpatient to medical surgical floor at this time ? Morphine 2 mg IV every 4 hours as needed for pain ? Tylenol 650 every 8 hours as needed -We will apply ice pack to hip area and attempt to reduce swelling. ? Patient states if she is unable to make her medical decisions we should reach out to her daughter. -PT OT after surgery as per orthopedics Full code SCDs, heparin SQ twice daily Attestations Medical Necessity Statement*: Greater than 2 midnight stay for management of hip fracture. Coding Level of Care Code G0425 (30 min) Encounter Time (min): 40 (Michaela G) Patient seen via Telehealth in the acute care setting (hospital or ED location) by agreement and consent of patient or patient provider relations representative. Telehealth technology used during the visit includes video and audio. This patient encounter is appropriate and reasonable under the circumstances given the patient?s particular presentation at this time. The patient has been advised of the potential risks and limitations of this mode of treatment (including but not limited to the absence of in-person examination at this time) and has agreed to be treated by an off-site physician for this visit. If deemed clinically necessary from this telehealth visit, or if condition or consent for telehealth visit changes, an in-person visit will be arranged. For this encounter, total time for the origination of telehealth care on this date is as shown. Diagnoses Closed right hip fracture S72.001A Hypothyroid E03.9 Depression F32.A
[2023-04-01 20:03] VITALS: BP 103/58; PULSE 68; RESP 18; TEMP 36.9; O2SAT 99
--- NOTE | 2023-04-01 20:51 | PC.NURSE ---
Tick removed from right buttock. Bruise to right hip but otherwise skin WNL.
[2023-04-01] MEDS: heparin 5,000 unit/mL INJ 1 mL 5000 UNIT SUBCUT (22:34)
[2023-04-01] MEDS: sodium chloride 0.9% 1,000 ML 100 ML IV (22:34)
[2023-04-01] MEDS: pantoprazole 40 mg SDV IVP (23:01)
[2023-04-02] VITALS (8 sets, daily range): BP systolic 90–118; BP diastolic 46–68; PULSE 66–71; RESP 16–19; TEMP 36.4–36.9; O2SAT 92–96
[2023-04-02 05:37] LABS: Basophils % 0.4 %; Eosinophils % 0.6 %; Hematocrit 29.2 % (37.0-47.0); Hemoglobin 9.1 g/dL (11.5-15.3); Lymphocytes # 2.2 10^3/uL (0.8-4.8); Mean Corpuscular HGB Conc 31.2 g/dL (30.0-36.0); Mean Corpuscular Hemoglobin 29.6 pg (28.0-34.0); Mean Corpuscular Volume 95.1 fl (81-99); Mean Platelet Volume 11.4 fL (7.4-10.4); Monocytes # 0.4 10^3/uL (0.2-0.9); Monocytes % 7.5 %; Neutrophils # 2.16 10^3/uL (1.8-7.7); Neutrophils % 45.3 %; Nucleated Red Blood Cells % 0 %; Platelet Count 153 10^3/cmm (130-400); Red Blood Count 3.07 10^6/uL (4.1-5.3); Red Cell Distribution Width 13.7 % (12.1-15.1); White Blood Count 4.8 10^3/uL (4.0-10.0)
[2023-04-02 06:04] LABS: INR 1.26 (0.8-1.2)
[2023-04-02 06:05] LABS: Alanine Aminotransferase 9 U/L (0-33); Alkaline Phosphatase 46 U/L (35-105); Anion Gap 10.5 (5-19); Aspartate Amino Transferase 21 U/L (0-32); Blood Urea Nitrogen 18 mg/dL (8-23); Calcium 7.8 mg/dL (8.5-10.5); Carbon Dioxide 26 mmol/L (22-29); Chloride 105 mmol/L (98-107); Globulin 2.5 g/dL (1.3-4.6); Glucose 87 mg/dL (65-115); Magnesium 2.2 mg/dL (1.7-2.3); Osmolality Calculated 285 mOsm/kg (285-295); Potassium 4.5 mmol/L (3.5-5.1); Sodium 137 mmol/L (136-145); Total Bilirubin 0.5 mg/dL (0.15-1.2); Total Protein 5.5 g/dL (6.6-8.7)
[2023-04-02] MEDS: morphine 4 mg/mL SDV 1 mL 2 MG IVP (07:44)
[2023-04-02] MEDS: sodium chloride 0.9% 1,000 ML 100 ML IV ×2 (08:39→21:17)
[2023-04-02] MEDS: heparin 5,000 unit/mL INJ 1 mL 5000 UNIT SUBCUT ×2 (08:40→21:16)
--- NOTE | 2023-04-02 10:15 | PM.CONSULT ---
Providers/Reason For Consult Consulting Physician/Specialty*: hospitalist Reason for Consult*: right hip fracture Attending Physician: Collin Porter MD Primary Care Provider: Mario Joshua MD History of Present Illness History of Present Illness Dai Valderrama is a 83 year old female Review of Systems Const: Denies: fever(s), chills, body aches, fatigue or malaise Eyes: Denies: change in vision, blurry vision, photophobia, floaters or seeing flashes Card: Denies: chest pain, palpitations, irregular heart rhythm, edema, swelling of feet/ankles, lightheadedness, syncope, pre-syncope, dyspnea on exertion, orthopnea, leg pain with exertion or acrocyanosis Resp: Denies: dyspnea, productive cough, non-productive cough, hemoptysis or chest congestion GI: Denies: abdominal pain, nausea or vomiting : Denies: flank pain, dysuria or hematuria Musc: Reports: neck pain (chronic-at baseline), back pain (chronic-at baseline) and joint pain (L hip); Denies: extremity pain, extremity swelling or joint swelling Neuro: Denies: headache(s), numbness in extremities, weakness in extremities, sensory changes, dizziness, confusion or Slurred speech present Medications/Allergies Home Medications Medication Instructions Recorded Confirmed Last Taken Type citalopram 20 mg tablet 20 mg PO DAILY@82912/30/20 04/01/23 04/01/23 History levothyroxine 75 mcg tablet 75 mcg PO DAILY@82912/30/20 04/01/23 04/01/23 History raloxifene 60 mg tablet 60 mg PO DAILY@82912/30/20 04/01/23 04/01/23 History diclofenac sodium 1 % topical gel 2 g topical BID PRN Pain 04/01/23 04/02/23 Unknown History Allergies Allergy/AdvReac Type Severity Reaction Status Date / Time No Known Allergies Allergy Verified 04/01/23 20:55 Current Medications Generic Name Dose Route Start Last Admin Trade Name Freq PRN Reason Stop Dose Admin Heparin Sodium (Porcine) 5,000 unit 04/01/23 20:15 04/02/23 08:40 Heparin 5,000 Unit/Ml Inj 1 Ml SUBCUT 5,000 unit Q12H TUNDE Administration Sodium Chloride 1,000 mls @ 100 mls/hr 04/01/23 20:15 04/02/23 08:39 Sodium Chloride 0.9% IV 100 mls/hr .Q10H TUNDE Administration Pantoprazole Sodium 40 mg 04/01/23 20:15 04/01/23 23:01 Pantoprazole 40 Mg Sdv IVP 40 mg Q24H TUNDE Administration Vitals/I&O/Wt Last Vital Signs Temp 97.5 F L 04/02/23 04:00 Pulse 67 04/02/23 04:00 Resp 18 04/02/23 07:44 BP 103/53 04/02/23 04:00 Pulse Ox 95 04/02/23 04:00 O2 Del Method Room Air 04/01/23 20:50 04/01/23 04/02/23 04/02/23 22:59 06:59 14:59 Intake Total 1000 / 1000 Output Total 500 / 500 Balance -500 / -500 1000 / 1000 Weight last 48 hrs Weight 142 lb 8 oz Weight 145 lb Physical Exam Narrative: Right hip flexed up. She is complaining of some knee pain however no no pain to palpation nothing is just reporting down from her hip. Urinary Catheter Management: Irvin: Cath Placed During This Visit: yes Reason for Continuing Indwelling Catheter: Other Urinary Catheter Date of Insertion: 04/01/23 Urinary Catheter Time of Insertion: 22:00 Data 04/02/23 05:10 04/02/23 05:10 A&P Assessment and plan (1) Closed right hip fracture: Patient fracture around her previous hip hemiarthroplasty. At this point my plan is to do a hook plate with cables to secure this. I had an open and honest discussion with the patient about the risks, benefits and alternatives to both surgical and nonsurgical treatment. The patient verbalized understanding of the inherent unpredictability associated with surgery. Risk of surgery were discussed including, but not limited to, infection, bleeding, temporary and permanent nerve damage, continued pain, stiffness, incomplete healing, need for revision surgery, blood clot and other complications. The patient verbalized understanding that there is spine is elective in nature and if they find any of these risks to be unacceptable then they should choose not to have the surgery. The patient verbalized understanding of these risks and elected to proceed with the surgery. Coding Level of Care Code Acute Code for [facility] Fwd Diagnoses Closed right hip fracture S72.001A
[2023-04-02] MEDS: citalopram 20 mg Tablet PO (10:39)
[2023-04-02] MEDS: levothyroxine 75 mcg Tablet PO (10:40)
[2023-04-02] MEDS: acetaminophen 325 mg Tablet 650 MG PO (12:12)
--- NOTE | 2023-04-02 15:18 | PM.PN ---
Subjective Subjective: Patient was seen this morning, she continues to have pain she tells me that she lives at home by herself, and she fell, spoke to daughter at bedside, Vitals/I&O/Wt Last Vital Signs Temp 98.4 F 04/02/23 12:00 Pulse 71 04/02/23 12:00 Resp 17 04/02/23 12:00 BP 90/50 04/02/23 12:00 Pulse Ox 92 04/02/23 12:00 O2 Del Method Room Air 04/02/23 12:00 04/02/23 04/02/23 04/02/23 06:59 14:59 22:59 Intake Total 1240 / 1240 Output Total 500 / 500 Balance -500 / -500 1240 / 1240 Weight last 48 hrs Weight 64.637 kg Weight 65.771 kg Physical Exam Const: COMMON NORMALS: no acute distress and patient oriented x3 Resp: COMMON NORMALS: normal respiratory effort, No retractions, No use of accessory muscles and clear to auscultation bilaterally AUSCULTATION: clear to auscultation bilaterally Cardio: COMMON NORMALS: regular rate, regular rhythm, S1 normal heart sound present and S2 normal heart sound present RATE: regular rate RHYTHM: regular rhythm HEART SOUNDS: S1 normal heart sound present and S2 normal heart sound present GI: COMMON NORMALS: Normal to inspection, nondistended, normoactive bowel sounds present and non-tender Extremity: COMMON NORMALS: no pedal edema Neuro: COMMON NORMALS: patient oriented x3 Psych: COMMON NORMALS: mental status grossly normal Urinary Catheter Management: Irvin: Cath Placed During This Visit: yes Reason for Continuing Indwelling Catheter: Other Urinary Catheter Date of Insertion: 04/01/23 Urinary Catheter Time of Insertion: 22:00 Data 04/02/23 05:10 04/02/23 05:10 A&P Assessment and plan (1) Closed right hip fracture: (2) Hypothyroid: (3) Depression: Plan #Acute right hip fracture, around previous hip hemiarthroplasty #Depression #Hypothyroidism ? Preop evaluation complete. Chest x-ray, EKG reviewed. As per interview patient is able to do 4 METS. She is not on insulin does not have a history of heart failure or hypertension. ? Continue levothyroxine 75 daily, continue citalopram 20 daily ? Orthopedic surgery consulted. N.p.o. at midnight for potential procedure in a.m. ? Awaiting recommendations from orthopedic surgery regarding further management. ? Admit as inpatient to medical surgical floor at this time ? Switch to Dilaudid 1 mg every 4 hours as needed for pain ? Tylenol 650 every 8 hours as needed -We will apply ice pack to hip area and attempt to reduce swelling. ? Patient states if she is unable to make her medical decisions we should reach out to her daughter. -PT OT after surgery as per orthopedics Full code SCDs, heparin SQ twice daily Spoke to patient, spoke to Dr. Thakkar, spoke to patient daughter, spoke to nursing staff Attestations Medical Necessity Statement*: Requires hospitalization for acute right hip fracture Diagnoses Closed right hip fracture S72.001A Hypothyroid E03.9 Depression F32.A
[2023-04-02] MEDS: pantoprazole 40 mg SDV IVP (21:34)
[2023-04-03] VITALS (26 sets, daily range): BP systolic 90–132; BP diastolic 50–79; PULSE 66–92; RESP 14–21; TEMP 36.4–37.1; O2SAT 94–100
--- NOTE | 2023-04-03 | XR_ITS ---
WS: [id number] Exam: XR hip RT 2-3V wo/w pel* [id number] Date/Time of Exam: 04/03/2023 12:00 AM Reason For Exam: orif right hip AP and lateral C-arm images of the proximal right femur are submitted for evaluation. Comparison 04/01. There is internal orthopedic fixation involving a fracture of the proximal femur with plate and cable fixation. A pre-existing total hip arthroplasty is noted appearing to be in satisfactory position ba sed on images presented. Postoperative changes in the adjacent soft tissues. XR/XR hip RT 2-3V wo/w pel* [id number] IMPRESSION: 1. Internal orthopedic fixation involving a fracture of the upper femur as deta iled above.
[2023-04-03] MEDS: sodium chloride 0.9% 1,000 ML 100 ML IV ×2 (05:39→17:45)
[2023-04-03 06:22] LABS: Basophils % 0.4 %; Eosinophils # 0.1 10^3/uL (0.0-0.8); Eosinophils % 1.9 %; Hematocrit 26.9 % (37.0-47.0); Hemoglobin 8.4 g/dL (11.5-15.3); Lymphocytes # 1.6 10^3/uL (0.8-4.8); Lymphocytes % 34.8 %; Mean Corpuscular HGB Conc 31.2 g/dL (30.0-36.0); Mean Corpuscular Hemoglobin 30.2 pg (28.0-34.0); Mean Corpuscular Volume 96.8 fl (81-99); Mean Platelet Volume 11.3 fL (7.4-10.4); Monocytes # 0.4 10^3/uL (0.2-0.9); Monocytes % 7.9 %; Neutrophils # 2.57 10^3/uL (1.8-7.7); Neutrophils % 54.8 %; Nucleated Red Blood Cells % 0 %; Platelet Count 144 10^3/cmm (130-400); Red Blood Count 2.78 10^6/uL (4.1-5.3); Red Cell Distribution Width 13.5 % (12.1-15.1); White Blood Count 4.7 10^3/uL (4.0-10.0)
[2023-04-03 06:40] LABS: Blood Urea Nitrogen 12 mg/dL (8-23); Calcium 7.4 mg/dL (8.5-10.5); Carbon Dioxide 25 mmol/L (22-29); Chloride 108 mmol/L (98-107); Glucose 95 mg/dL (65-115); Osmolality Calculated 286 mOsm/kg (285-295); Sodium 138 mmol/L (136-145)
--- NOTE | 2023-04-03 07:32 | W.PM.OPSUD ---
Surgery/Procedure H&P Update DATE OF PROCEDURE: April 03, 2023 DATE H&P PERFORMED: 04/01/23 H&P UPDATE INFORMATION: I have reviewed H&P completed within last 30 days, I have examined patient prior to procedure and No changes to prior documentation PLANNED PROCEDURE: Operation Date: 04/03/23 08:30 Proposed Procedures p Open Reduction Hip(Right) - Homero Thakkar DO
--- NOTE | 2023-04-03 07:42 | ANES.PREANE2 ---
Pre-Anesthetic Assessment Height/Weight: Height 1.73 m Weight 64.637 kg Temp Pulse Resp BP Pulse Ox O2 Del Method 98.8 F 66 16 108/50 96 Room Air 04/03/23 07:20 04/03/23 07:20 04/03/23 07:20 04/03/23 07:20 04/03/23 07:20 04/03/23 07:20 Operation Date: 04/03/23 08:30 Proposed Procedures p Open Reduction Hip(Right) - Homero H Ariane, DO Familial anesthetic complications: None Was Beta Amanda taken within 24 hours: N/A Was Clonidine taken within 24 hours: N/A Last intake: Intake Last Liquid Date 04/02/23 Last Liquid Time 21:00 Last Solid Date 04/02/23 Last Solid Time 17:00 Social No alcohol and No tobacco Exam alert, oriented x 3, clear to auscultation bilaterally and regular rate & rhythm Airway Mallampati: Class II Dentition: false CV/HEM a fib on ekg reading Metabolic Thyroid Disease Neuropsych Depression Anesthetic Plan ASA status: 2 Anesthesia: General Risk of > 500 ml blood loss (7ml/kg in children): No Medications/Allergies Home Medications Medication Instructions Recorded Confirmed Last Taken Type citalopram 20 mg tablet 20 mg PO DAILY@0812/30/20 04/01/23 04/01/23 History levothyroxine 75 mcg tablet 75 mcg PO DAILY@0830 12/30/20 04/01/23 04/01/23 History raloxifene 60 mg tablet 60 mg PO DAILY@0830 12/30/20 04/01/23 04/01/23 History diclofenac sodium 1 % topical gel 2 g topical BID PRN Pain 04/01/23 04/02/23 Unknown History Allergies Allergy/AdvReac Type Severity Reaction Status Date / Time No Known Allergies Allergy Verified 04/01/23 20:55 Current Medications Generic Name Dose Route Start Last Admin Trade Name Freq PRN Reason Stop Dose Admin Acetaminophen 650 mg 04/01/23 20:03 04/02/23 12:12 Acetaminophen 325 Mg Tablet PO 650 mg Q6H PRN Administration Mild/Mod Pain Or Temp >/= 101 Citalopram Hydrobromide 20 mg 04/02/23 08:30 04/02/23 10:39 Citalopram 20 Mg Tablet PO 20 mg DAILY@0830 TUNDE Administration Heparin Sodium (Porcine) 5,000 unit 04/01/23 20:15 04/02/23 21:16 Heparin 5,000 Unit/Ml Inj 1 Ml SUBCUT 5,000 unit Q12H TUNDE Administration Sodium Chloride 1,000 mls @ 100 mls/hr 04/01/23 20:15 04/03/23 05:39 Sodium Chloride 0.9% IV 100 mls/hr .Q10H TUNDE Administration Levothyroxine Sodium 75 mcg 04/02/23 08:30 04/02/23 10:40 Levothyroxine 75 Mcg Tablet PO 75 mcg DAILY@0830 TUNDE Administration Pantoprazole Sodium 40 mg 04/01/23 20:15 04/02/23 21:34 Pantoprazole 40 Mg Sdv IVP 40 mg Q24H TUNDE Administration Data Anesthesia 04/03/23 05:33 04/03/23 05:33 Short CBC 04/01/23 04/02/23 04/03/23 Range/Units 18:45 05:10 05:33 WBC 7.9 4.8 4.7 (4.0-10.0) 10^3/uL Hgb 11.1 L 9.1 L 8.4 L (11.5-15.3) g/dL Hct 35.3 L 29.2 L 26.9 L (37.0-47.0) % MCV 94.4 95.1 96.8 (81-99) fl Plt Count 194 153 144 (130-400) 10^3/cmm Neut % (Auto) 83.3 45.3 54.8 % Neut # (Auto) 6.56 2.16 2.57 (1.8-7.7) 10^3/uL BMP 04/01/23 04/02/23 04/03/23 18:45 05:10 05:33 Sodium 139 137 138 Potassium 4.9 4.5 4.0 Chloride 104 105 108 H Carbon Dioxide 25 26 25 BUN 18 18 12 Creatinine 0.9 0.8 0.7 Glucose 108 87 95 Calcium 8.2 L 7.8 L 7.4 L Liver Function 04/01/23 04/02/23 Range/Units 18:45 05:10 Total Bilirubin 0.5 0.5 (0.15-1.2) mg/dL AST 26 21 (0-32) U/L ALT 12 9 (0-33) U/L Alkaline Phosphatase 56 46 (35-105) U/L Albumin 3.7 3.0 L (3.5-5.2) g/dL Coags 04/01/23 04/02/23 18:45 05:10 PT 15.50 H 16.20 H INR 1.19 1.26 H Cardiac Studies: No Data to Display
[2023-04-03] MEDS: ceFAZolin 2,000 MG in sodium chloride 0.9% (plus) 50 ML 100 MG IV (07:56)
[2023-04-03] MEDS: vancomycin 1,000 MG SDV 1000 MG XX (09:15)
--- NOTE | 2023-04-03 09:38 | PM.OP ---
Operative Report Date of procedure: April 03, 2023 Pre-op diagnosis: periprosthetic femur fx Post-op diagnosis: same Procedure done: ORIF Right periprosthetic proximal femur fx Surgeon: Homero Thakkar Call Center Specialist: Abdiel Hull Call Center Specialist: The registered nurse surgical services, Abdiel Hull, PAC was needed for his expertise with fracture care. He was important and necessary throughout the procedure to complete in a safe and timely manner. He assisted with patient positioning prepping and draping tissue retraction suctioning of the operative field protection of the critical structures and tissue closure Estimated blood loss (mL): 550 Procedure: ORIF of right proximal femur fracture Patient was brought to the operative suite after undergoing anesthesia was placed in the lateral decubitus position. All areas impingement well-padded. The right leg was prepped and draped normal sterile fashion. Skin incision was made over the lateral thigh. IT band was identified and exposed. The vastus lateralis was then split. And retractors were placed fracture was identified the fracture extended up and had some comminution of the greater trochanter but then extended down along the stem of the prosthesis. The fracture was reduced and then a reduction clamp was used to hold the fracture in place. A cable was placed around the fracture to hold in place. Once this was completed the [place] proximal femoral plate with a hook was attached onto the greater trochanter and then spanned the femur past the stem of the prosthesis. This point cables were placed around the femur and through the plate 1 around the top of the stem and to along the shaft of the femur. And screws placed at the distal end of the femoral plate. AP lateral fluoroscopy showed the fracture was in good position. Wounds were irrigated and closed in layered fashion with Vicryl and jenny. Sterile dressings were applied and patient was transferred to the PACU in stable condition.
--- NOTE | 2023-04-03 10:37 | ANE.PACU2 ---
Inpatient post-anesthesia follow up: Airway intact: Yes Vital signs: Temperature 98.3 F Pulse Rate 75 Respiratory Rate 21 Blood Pressure 125/55 Pulse Oximetry 96 Oxygen Delivery Me thod Room Air Oxygen Flow Rate 6 Fraction of Inspir ed Oxygen Hydration adequate: Yes Nausea and vomiting: No Pain level: 1 Mental status: Baseline
[2023-04-03] MEDS: HYDROcodone-acetaminophen 5-325 mg Tablet PO (11:43)
[2023-04-03] MEDS: ketorolac 30 mg/mL INJ 15 MG IVP (11:43)
[2023-04-03] MEDS: ceFAZolin 1,000 MG in sodium chloride 0.9% (plus) 50 ML 100 MG IV (16:39)
[2023-04-03 17:12] LABS: Hematocrit 23.4 % (37.0-47.0); Hemoglobin 7.1 g/dL (11.5-15.3)
--- NOTE | 2023-04-03 19:58 | P.PN_ITS ---
Subjective Subjective: She is doing well postoperatively, states that she did have to have a pain pill. At the time of visit she is pain-free. Vitals/I&O/Wt Last Vital Signs Temp 98.1 F 04/03/23 18:32 Pulse 78 04/03/23 18:32 Resp 18 04/03/23 18:32 BP 114/64 04/03/23 18:32 Pulse Ox 100 04/03/23 18:32 O2 Del Method Room Air 04/03/23 17:30 O2 Flow Rate 6 04/03/23 09:58 04/03/23 04/03/23 04/03/23 06:59 14:59 22:59 Intake Total 836.667 / 3556.667 840 / 840 1290 / 2130 Output Total 700 / 1000 950 / 950 650 / 1600 Balance 136.667 / 2556.667 -110 / -110 640 / 530 Weight last 48 hrs Weight 64.637 kg Physical Exam Const: COMMON NORMALS: alert GENERAL APPEARANCE: cooperative ORIENTATION/CONSCIOUSNESS: Yes awake HENMT: COMMON NORMALS: oropharynx normal Neck/C-Spine: COMMON NORMALS: no JVD Resp: COMMON NORMALS: normal respiratory effort and clear to auscultation bilaterally AUSCULTATION: clear to auscultation bilaterally Cardio: COMMON NORMALS: no JVD, regular rhythm, S1 normal heart sound present, S2 normal heart sound present and No murmurs present (Cardio) RHYTHM: regular rhythm HEART SOUNDS: S1 normal heart sound present and S2 normal heart sound present GI: COMMON NORMALS: Normal to inspection, nondistended, normoactive bowel sounds present, Soft to palpation and non-tender PALPATION: Yes Soft to palpation Extremity: COMMON NORMALS: no joint enlargement and no pedal edema OTHER: RLE dressing intact, no bleeding. Cold pack in place. RLE appears perfused. Neuro: COMMON NORMALS: moves all extremities SENSORIUM/ORIENTATION: Yes alert Skin: COMMON NORMALS: no rashes or lesions noted GENERAL SKIN EXAM: no rashes or lesions noted Urinary Catheter Management: Irvin: Cath Placed During This Visit: yes Reason for Continuing Indwelling Catheter: Perioperative Use in Selected Surgeri es Urinary Catheter Date of Insertion: 04/01/23 Urinary Catheter Time of Insertion: 22:00 Data 04/03/23 17:03 05/29/23 05:33 A&P Assessment and plan (1) Closed right hip fracture: (2) Hypothyroid: (3) Depression: Plan #Acute right hip fracture, around previous hip hemiarthroplasty #Depression #Hypothyroidism Status post ORIF right hip. Doing well postoperatively, although did require a pain medication. 1 unit RBC was ordered postoperatively by anesthesia. Recheck hemoglobin is 7.1. We will request additional hemoglobin recheck tonight and in the morning. Follow-up acute anemia. Stop IV fluid. PT, OT assessment. CM follow-up with regards to DC planning. If mobilizing well, consideration of possible return home with family and home health noted. ? Continue levothyroxine 75 daily, continue citalopram 20 daily Continue pain medications. Full code SCDs, heparin SQ twice daily Attestations Medical Necessity Statement*: Continue admission for assessment and management following right hip fracture and repair. Diagnoses Closed right hip fracture S72.001A Hypothyroid E03.9 Depression F32.A
[2023-04-03] MEDS: heparin 5,000 unit/mL INJ 1 mL 5000 UNIT SUBCUT (20:38)
[2023-04-03] MEDS: pantoprazole 40 mg SDV IVP (21:43)
[2023-04-03 23:35] LABS: Hemoglobin 8.1 g/dL (11.5-15.3)
[2023-04-04] VITALS (9 sets, daily range): BP systolic 85–109; BP diastolic 49–63; PULSE 68–92; RESP 16–20; TEMP 36.7–36.9; O2SAT 95–97
[2023-04-04] MEDS: ceFAZolin 1,000 MG in sodium chloride 0.9% (plus) 50 ML 100 MG IV ×2 (00:27→08:10)
[2023-04-04] MEDS: HYDROmorphone 1 mg/mL INJ 1 mL IVP (00:43)
[2023-04-04 04:41] LABS: Basophils % 0.2 %; Eosinophils % 0.2 %; Hematocrit 25.7 % (37.0-47.0); Lymphocytes # 1.8 10^3/uL (0.8-4.8); Lymphocytes % 34.4 %; Mean Corpuscular HGB Conc 31.1 g/dL (30.0-36.0); Mean Corpuscular Hemoglobin 29.2 pg (28.0-34.0); Mean Corpuscular Volume 93.8 fl (81-99); Mean Platelet Volume 12.1 fL (7.4-10.4); Monocytes # 0.5 10^3/uL (0.2-0.9); Monocytes % 9.5 %; Neutrophils # 2.91 10^3/uL (1.8-7.7); Neutrophils % 55.3 %; Nucleated Red Blood Cells % 0 %; Platelet Count 127 10^3/cmm (130-400); Red Blood Count 2.74 10^6/uL (4.1-5.3); Red Cell Distribution Width 15.4 % (12.1-15.1); White Blood Count 5.3 10^3/uL (4.0-10.0)
[2023-04-04 05:08] LABS: Anion Gap 8.1 (5-19); Blood Urea Nitrogen 13 mg/dL (8-23); Carbon Dioxide 25 mmol/L (22-29); Chloride 110 mmol/L (98-107); Glucose 90 mg/dL (65-115); Osmolality Calculated 288 mOsm/kg (285-295); Potassium 4.1 mmol/L (3.5-5.1); Sodium 139 mmol/L (136-145)
--- NOTE | 2023-04-04 06:49 | PM.PN ---
Subjective Subjective: POD 1 Patient awake comfortable reports mild right hip pain. Denies any shortness of breath, chest pain, headaches. Vitals/I&O/Wt Last Vital Signs Temp 98.2 F 04/04/23 03:32 Pulse 81 04/04/23 03:32 Resp 20 H 04/04/23 03:32 BP 105/58 04/04/23 03:32 Pulse Ox 95 04/04/23 03:32 O2 Del Method Room Air 04/04/23 03:32 O2 Flow Rate 6 04/03/23 09:58 04/03/23 04/03/23 04/04/23 14:59 22:59 06:59 Intake Total 840 / 840 2880 / 3720 50 / 3770 Output Total 950 / 950 650 / 1600 300 / 1900 Balance -110 / -110 2230 / 2120 -250 / 1870 Physical Exam Narrative: Patient is alert and orient x3 has good general appearance normal normal affect. Right Hip incision is clean and dry. There is no signs of erythema or drainage no signs of infection. Good motor strength throughout both lower extremities. Fires in all motor groups. Skin is clear warm, feet are warm with good cap refill in all digits. Normal sensation to light touch. Calves are supple, no medial thigh tenderness, negative Homans' sign. No palpable edema peripherally. Urinary Catheter Management: Irvin: Cath Placed During This Visit: yes Reason for Continuing Indwelling Catheter: Perioperative Use in Selected Surgeries Urinary Catheter Date of Insertion: 04/01/23 Urinary Catheter Time of Insertion: 22:00 Data 04/04/23 03:48 04/04/23 03:48 A&P Assessment and plan (1) Acute blood loss anemia: Physical therapy to evaluate and mobilize. Continue incentive spirometry for pulmonary toilet. SCDs for DVT prophylaxis. Defer to medicine team for medical management. (2) Closed right hip fracture: Attestations Medical Necessity Statement*: Defer to medical team Coding Level of Care Code Acute Code for Chg Fwd Diagnoses Acute blood loss anemia D62 Closed right hip fracture S72.001A
[2023-04-04] MEDS: ketorolac 30 mg/mL INJ 15 MG IVP ×2 (07:28→13:33)
[2023-04-04] MEDS: citalopram 20 mg Tablet PO (08:11)
[2023-04-04] MEDS: heparin 5,000 unit/mL INJ 1 mL 5000 UNIT SUBCUT ×2 (08:11→20:22)
[2023-04-04] MEDS: HYDROcodone-acetaminophen 5-325 mg Tablet PO (08:12)
[2023-04-04] MEDS: levothyroxine 75 mcg Tablet PO (08:12)
[2023-04-04] MEDS: apixaban 5 mg Tablet 2.5 MG PO ×2 (08:13→17:04)
--- NOTE | 2023-04-04 08:58 | PC.SOCIAL ---
IMM Update pg 2 of IMM Updated and reviewed w/ patient. Copy provided and Copy dated, initialed and placed in chart.
[2023-04-04] MEDS: acetaminophen 325 mg Tablet 650 MG PO ×2 (10:12→17:03)
[2023-04-04 10:46] LABS: Hemoglobin 8.2 g/dL (11.5-15.3)
[2023-04-04] MEDS: pantoprazole 40 mg SDV IVP (20:40)
--- NOTE | 2023-04-04 21:17 | PM.PN ---
Subjective Subjective: States today she is feeling better. Pain is under better control, although still has been requiring pain medication. Discussed with her soft blood pressures. Discussed orthostatic precautions. Vitals/I&O/Wt Last Vital Signs Temp 98.3 F 04/04/23 19:08 Pulse 78 04/04/23 19:08 Resp 17 04/04/23 19:08 BP 109/63 04/04/23 19:08 Pulse Ox 95 04/04/23 19:08 O2 Del Method Room Air 04/04/23 12:00 O2 Flow Rate 6 04/03/23 09:58 04/04/23 04/04/23 04/04/23 06:59 14:59 22:59 Intake Total 50 / 3770 530 / 530 240 / 770 Output Total 300 / 1900 Balance -250 / 1870 530 / 530 240 / 770 Physical Exam Narrative: Sitting up in chair. Const: COMMON NORMALS: alert GENERAL APPEARANCE: cooperative ORIENTATION/CONSCIOUSNESS: Yes awake HENMT: COMMON NORMALS: oropharynx normal Neck/C-Spine: COMMON NORMALS: no JVD Resp: COMMON NORMALS: normal respiratory effort and clear to auscultation bilaterally AUSCULTATION: clear to auscultation bilaterally Cardio: COMMON NORMALS: no JVD, regular rhythm, S1 normal heart sound present, S2 normal heart sound present and No murmurs present (Cardio) RHYTHM: regular rhythm HEART SOUNDS: S1 normal heart sound present and S2 normal heart sound present GI: COMMON NORMALS: Normal to inspection, nondistended, normoactive bowel sounds present, Soft to palpation and non-tender PALPATION: Yes Soft to palpation Extremity: COMMON NORMALS: no joint enlargement and no pedal edema OTHER: RLE dressing intact, no bleeding. Cold pack in place. RLE appears perfused. Neuro: COMMON NORMALS: moves all extremities SENSORIUM/ORIENTATION: Yes alert Skin: COMMON NORMALS: no rashes or lesions noted GENERAL SKIN EXAM: no rashes or lesions noted Urinary Catheter Management: Irvin: Cath Placed During This Visit: yes, but has since been removed by the nurse Reason for Continuing Indwelling Catheter: Perioperative Use in Selected Surgeries Urinary Catheter Date of Insertion: 04/01/23 Urinary Catheter Time of Insertion: 22:00 Date Urinary Catheter Removed: 04/04/23 Time Urinary Catheter Discontinued: 07:25 Data 04/04/23 10:28 04/04/23 03:48 A&P Assessment and plan (1) Closed right hip fracture: (2) Hypothyroid: (3) Depression: Plan #Acute right hip fracture, around previous hip hemiarthroplasty #Depression #Hypothyroidism Status post ORIF right hip. Blood pressure soft this morning, 1 value noted down as low as 85/52, but otherwise staying in mid 90s over 50s-60s, improving up to 109/63 this evening. Discussed orthostatic precautions. Hemoglobin was rechecked and noted 8.2. She is otherwise subjectively feeling better. Likely medication toxicity with pain medication contribution. Monitor blood pressures while still needing pain control. Follow-up blood counts requested She was started on Eliquis. Heparin. Given she had received transfusion for now held off additional boluses or midodrine, but may need to be considered. Noted some decrease in platelets today 127. Follow-up CBC. Off IV fluid. Likely will need to rehabilitation at SNF. Arrangements underway by CM. ? Continue levothyroxine 75 daily, continue citalopram 20 daily Continue pain control cautiously. Full code SCDs, heparin SQ twice daily Attestations Medical Necessity Statement*: Continue admission for assessment management following right hip fracture and repair, hypotension, Disposition planning and arrangements. Diagnoses Closed right hip fracture S72.001A Hypothyroid E03.9 Depression F32.A
[2023-04-05] VITALS (7 sets, daily range): BP systolic 90–114; BP diastolic 49–64; PULSE 66–84; RESP 16–18; TEMP 36.4–37.3; O2SAT 93–98
[2023-04-05] MEDS: ketorolac 30 mg/mL INJ 15 MG IVP (04:55)
[2023-04-05 06:25] LABS: Basophils % 0.4 %; Eosinophils % 0.9 %; Hematocrit 23.6 % (37.0-47.0); Hemoglobin 7.5 g/dL (11.5-15.3); Lymphocytes # 0.9 10^3/uL (0.8-4.8); Lymphocytes % 18.9 %; Mean Corpuscular HGB Conc 31.8 g/dL (30.0-36.0); Mean Corpuscular Volume 94.4 fl (81-99); Mean Platelet Volume 11.6 fL (7.4-10.4); Monocytes # 0.3 10^3/uL (0.2-0.9); Monocytes % 6.9 %; Neutrophils # 3.39 10^3/uL (1.8-7.7); Neutrophils % 72.7 %; Nucleated Red Blood Cells % 0 %; Platelet Count 126 10^3/cmm (130-400); Red Cell Distribution Width 14.6 % (12.1-15.1); White Blood Count 4.7 10^3/uL (4.0-10.0)
[2023-04-05 06:38] LABS: Anion Gap 10.8 (5-19); Blood Urea Nitrogen 14 mg/dL (8-23); Calcium 7.2 mg/dL (8.5-10.5); Carbon Dioxide 22 mmol/L (22-29); Chloride 106 mmol/L (98-107); Glucose 122 mg/dL (65-115); Osmolality Calculated 282 mOsm/kg (285-295); Potassium 3.8 mmol/L (3.5-5.1); Sodium 135 mmol/L (136-145)
--- NOTE | 2023-04-05 06:48 | P.PN_ITS ---
Subjective Subjective: POD 2 Patient resting comfortably. Complains of right hip pain. Denies any shortness of breath, chest pain, headaches. Vitals/I&O/Wt Last Vital Signs Temp 98.9 F 04/05/23 05:00 Pulse 79 04/05/23 05:00 Resp 18 04/05/23 05:00 BP 99/58 04/05/23 05:00 Pulse Ox 97 04/05/23 05:00 O2 Del Method Room Air 04/04/23 12:00 O2 Flow Rate 6 04/03/23 09:58 04/04/23 04/04/23 04/05/23 14:59 22:59 06:59 Intake Total 530 / 530 600 / 1130 Balance 530 / 530 600 / 1130 Physical Exam Narrative: Patient is alert and orient x3 has good general appearance normal normal affect. Right hip incision is clean and dry. There is no signs of erythema or drainage no signs of infection. Good motor strength throughout both lower extremities. Fires in all motor groups. Skin is clear warm, feet are warm with good cap refill in all digits. Normal sensation to light touch. Calves are supple, no medial thigh tenderness, negative Homans' sign. No palpable edema peripherally. Urinary Catheter Management: Irvin: Cath Placed During This Visit: yes, but has since been removed by the nurse Reason for Continuing Indwelling Catheter: Perioperative Use in Selected Surgeri es Urinary Catheter Date of Insertion: 04/01/23 Urinary Catheter Time of Insertion: 22:00 Date Urinary Catheter Removed: 04/04/23 Time Urinary Catheter Discontinued: 07:25 Data 04/05/23 06:06 04/05/23 06:06 A&P Assessment and plan (1) Acute blood loss anemia: Physical therapy to continue to mobilize. Dressing change to the right hip. Encourage incentive spirometer for pulmonary toilet. sales representative facility services consulted for placement. Luis M for DVT prophylaxis. Okay from orthopedic standpoint to transfer when medically stable. We will see her back in the office in 10 to 12 days for staple removal. (2) Closed right hip fracture: Attestations Medical Necessity Statement*: Defer to medical team Coding Level of Care Code Acute Code for Chg Fwd Diagnoses Acute blood loss anemia D62 Closed right hip fracture S72.001A
[2023-04-05] MEDS: apixaban 5 mg Tablet 2.5 MG PO ×2 (08:08→17:26)
[2023-04-05] MEDS: levothyroxine 75 mcg Tablet PO (08:08)
[2023-04-05] MEDS: citalopram 20 mg Tablet PO (08:08)
[2023-04-05 16:50] LABS: SARS Covid-2 Antigen negative (Negative)
--- NOTE | 2023-04-05 21:23 | PM.PN ---
Subjective Subjective: States she is feeling better today. Denies dizziness, lightheadedness. Discussed with her additional decrease in hemoglobin, discussed follow-up blood count tonight and tomorrow morning. Vitals/I&O/Wt Last Vital Signs Temp 98.6 F 04/05/23 19:46 Pulse 83 04/05/23 19:46 Resp 16 04/05/23 19:46 BP 108/62 04/05/23 19:46 Pulse Ox 95 04/05/23 19:46 O2 Del Method Room Air 04/05/23 16:00 O2 Flow Rate 6 04/03/23 09:58 04/05/23 04/05/23 04/05/23 06:59 14:59 22:59 Intake Total 480 / 480 240 / 720 Balance 480 / 480 240 / 720 Physical Exam Narrative: Sitting up in bed. Const: COMMON NORMALS: alert GENERAL APPEARANCE: cooperative ORIENTATION/CONSCIOUSNESS: Yes awake HENMT: COMMON NORMALS: oropharynx normal Neck/C-Spine: COMMON NORMALS: no JVD Resp: COMMON NORMALS: normal respiratory effort and clear to auscultation bilaterally AUSCULTATION: clear to auscultation bilaterally Cardio: COMMON NORMALS: no JVD, regular rhythm, S1 normal heart sound present, S2 normal heart sound present and No murmurs present (Cardio) RHYTHM: regular rhythm HEART SOUNDS: S1 normal heart sound present and S2 normal heart sound present GI: COMMON NORMALS: Normal to inspection, nondistended, normoactive bowel sounds present, Soft to palpation and non-tender PALPATION: Yes Soft to palpation Extremity: COMMON NORMALS: no joint enlargement and no pedal edema OTHER: RLE dressing intact, no bleeding. RLE appears perfused. Neuro: COMMON NORMALS: moves all extremities SENSORIUM/ORIENTATION: Yes alert Skin: COMMON NORMALS: no rashes or lesions noted GENERAL SKIN EXAM: no rashes or lesions noted Urinary Catheter Management: Irvin: Cath Placed During This Visit: yes, but has since been removed by the nurse Reason for Continuing Indwelling Catheter: Perioperative Use in Selected Surgeries Urinary Catheter Date of Insertion: 04/01/23 Urinary Catheter Time of Insertion: 22:00 Date Urinary Catheter Removed: 04/04/23 Time Urinary Catheter Discontinued: 07:25 Data 04/05/23 06:06 04/05/23 06:06 A&P Assessment and plan (1) Closed right hip fracture: (2) Hypothyroid: (3) Depression: Plan #Acute right hip fracture, around previous hip hemiarthroplasty #Depression #Hypothyroidism Status post ORIF right hip. Hypotension improved. Blood pressure soft, but remaining steady. Noted decrease in hemoglobin today 7.5. Recheck hemoglobin tonight and follow-up CBC in the morning. Platelets noted 126. On Eliquis for DVT prophylaxis, with anemia, risk of bleeding, monitor closely here for now. Orthopedic documentation appreciated. Continue arrangements also for postdischarge rehabilitation, pending prior authorization. ? Continue levothyroxine 75 daily, continue citalopram 20 daily Continue pain control cautiously. Full code SCDs, heparin SQ twice daily Attestations Medical Necessity Statement*: Continue admission for assessment management of anemia, low blood pressure after hip fracture and repair, disposition planning and arrangements. Diagnoses Closed right hip fracture S72.001A Hypothyroid E03.9 Depression F32.A
[2023-04-05] MEDS: pantoprazole 40 mg SDV IVP (21:27)
[2023-04-06] VITALS (10 sets, daily range): BP systolic 90–103; BP diastolic 44–58; PULSE 64–82; RESP 16–20; TEMP 36.6–37.1; O2SAT 93–100
[2023-04-06] MEDS: acetaminophen 325 mg Tablet 650 MG PO (02:06)
[2023-04-06 05:08] LABS: Basophils % 0.2 %; Eosinophils # 0.1 10^3/uL (0.0-0.8); Eosinophils % 3.1 %; Hematocrit 22.1 % (37.0-47.0); Hemoglobin 7.1 g/dL (11.5-15.3); Lymphocytes # 1.6 10^3/uL (0.8-4.8); Lymphocytes % 34.9 %; Mean Corpuscular HGB Conc 32.1 g/dL (30.0-36.0); Mean Corpuscular Hemoglobin 29.5 pg (28.0-34.0); Mean Corpuscular Volume 91.7 fl (81-99); Mean Platelet Volume 11.5 fL (7.4-10.4); Monocytes # 0.3 10^3/uL (0.2-0.9); Monocytes % 7.2 %; Neutrophils # 2.48 10^3/uL (1.8-7.7); Neutrophils % 54.4 %; Nucleated Red Blood Cells % 0 %; Platelet Count 146 10^3/cmm (130-400); Red Blood Count 2.41 10^6/uL (4.1-5.3); Red Cell Distribution Width 14.4 % (12.1-15.1); White Blood Count 4.6 10^3/uL (4.0-10.0)
--- NOTE | 2023-04-06 06:50 | PM.PN ---
Subjective Subjective: POD 3 Patient resting comfortably. Denies lightheadedness or shortness of breath, chest pain. Reports right hip pain. Vitals/I&O/Wt Last Vital Signs Temp 98.5 F 04/06/23 03:27 Pulse 74 04/06/23 03:27 Resp 16 04/06/23 03:27 BP 91/51 04/06/23 03:27 Pulse Ox 95 04/06/23 03:27 O2 Del Method Room Air 04/06/23 03:27 O2 Flow Rate 6 04/03/23 09:58 04/05/23 04/05/23 04/06/23 14:59 22:59 06:59 Intake Total 480 / 480 360 / 840 Balance 480 / 480 360 / 840 Physical Exam Narrative: Patient is alert and orient x3 has good general appearance normal normal affect.? Right hip incision is clean and dry. ? There is no signs of erythema or drainage no signs of infection.? Good motor strength throughout both lower extremities.? Fires in all motor groups.? Skin is clear warm, feet are warm with good cap refill in all digits.? Normal sensation to light touch.? Calves are supple,? no medial thigh tenderness, negative Homans' sign.? No palpable edema peripherally. Urinary Catheter Management: Irvin: Cath Placed During This Visit: yes, but has since been removed by the nurse Reason for Continuing Indwelling Catheter: Perioperative Use in Selected Surgeries Urinary Catheter Date of Insertion: 04/01/23 Urinary Catheter Time of Insertion: 22:00 Date Urinary Catheter Removed: 04/04/23 Time Urinary Catheter Discontinued: 07:25 Data 04/06/23 04:22 04/05/23 06:06 A&P Assessment and plan (1) Acute blood loss anemia: Patient's hemoglobin is at 7.1. We will leave to the medicine service to discuss a transfusion. Encourage mobilization with physical therapy. healthcare advisory services manager consulted for placement. Encourage incentive spirometry for pulmonary toilet. We will see her back in 2 weeks time for staple removal in the clinic. (2) Closed right hip fracture: Attestations Medical Necessity Statement*: Defer to medical team Coding Level of Care Code Acute Code for Ch Fwd Diagnoses Acute blood loss anemia D62 Closed right hip fracture S72.001A
[2023-04-06] MEDS: levothyroxine 75 mcg Tablet PO (07:28)
[2023-04-06] MEDS: citalopram 20 mg Tablet PO (07:28)
[2023-04-06] MEDS: apixaban 5 mg Tablet 2.5 MG PO (08:13)
--- NOTE | 2023-04-06 13:35 | PM.DCS ---
Discharge Providers Date of Admission: 04/01/23 18:39 Date of Discharge: April 06, 2023 Attending Provider at Admission: Minerva Self MD Attending Provider at Discharge: Usman Santo Primary Care Provider: Mario Joshua MD Diagnoses at Discharge Discharge Diagnosis (1) Acute blood loss anemia: Status: Acute (2) Closed right hip fracture: Status: Acute Other Information Additional DC diagnoses/information: Tried calling daughter Maria Elena to also discuss. Reason for Visit Reason for Visit: Fall, head and hip pain Hospital Course Hospital Course Pleasant 83-year-old lady with prior history of right hip arthroplasty, was admitted after a fall and a right hip fracture and underwent ORIF right periprosthetic proximal femoral fracture on 04/03. Due to blood loss requiring 2 units RBC transfusion. Blood pressure soft but improving. She is on Eliquis for DVT prophylaxis. Caution with pain medications or other medications that may cause blood pressure decrease. Please follow-up hemoglobin on Monday. She is discharging to SNF for rehabilitation with follow-up with orthopedics. Physical Exam Narrative: Sitting up in chair. Reports she is doing well, but does get pain in her right hip with ambulation. Denies dizziness or lightheadedness. No shortness of breath, no chest pain Const: COMMON NORMALS: alert GENERAL APPEARANCE: cooperative ORIENTATION/CONSCIOUSNESS: Yes awake HENMT: COMMON NORMALS: oropharynx normal Neck/C-Spine: COMMON NORMALS: no JVD Resp: COMMON NORMALS: normal respiratory effort and clear to auscultation bilaterally AUSCULTATION: clear to auscultation bilaterally Cardio: COMMON NORMALS: no JVD, regular rhythm, S1 normal heart sound present, S2 normal heart sound present and No murmurs present (Cardio) RHYTHM: regular rhythm HEART SOUNDS: S1 normal heart sound present and S2 normal heart sound present GI: COMMON NORMALS: Normal to inspection, nondistended, normoactive bowel sounds present, Soft to palpation and non-tender PALPATION: Yes Soft to palpation Extremity: COMMON NORMALS: no joint enlargement and no pedal edema OTHER: RLE dressing intact, no bleeding. RLE appears perfused. Neuro: COMMON NORMALS: moves all extremities SENSORIUM/ORIENTATION: Yes alert Skin: COMMON NORMALS: no rashes or lesions noted GENERAL SKIN EXAM: no rashes or lesions noted Urinary Catheter Management: Irvin: Cath Placed During This Visit: yes, but has since been removed by the nurse Reason for Continuing Indwelling Catheter: Perioperative Use in Selected Surgeries Urinary Catheter Date of Insertion: 04/01/23 Urinary Catheter Time of Insertion: 22:00 Date Urinary Catheter Removed: 04/04/23 Time Urinary Catheter Discontinued: 07:25 Discharge Data Studies Completed and Pending Completed Studies During Hospitalization Category Date Time Status CT head wo con* [id number] Stat Cat Scan 04/01/23 17:[address] hip RT wo con* [id number] Stat Cat Scan 04/01/23 18:46 Completed XR chest 1V portable [id number] Stat Exams 04/01/23 18:33 Completed XR hip RT 2-3V wo/w pel* [id number] Routine Exams 04/03/23 Completed XR hip RT 2-3V wo/w pel* [id number] Stat Exams 04/01/23 17:38 Completed Pending at discharge Category Date Time Status Complete Blood Count w/Auto AM LABS Lab 04/07/23 04:00 Ordered Complete Blood Count w/Auto AM LABS Lab 04/08/23 04:00 Ordered Radiology Impressions Head CT 04/01/23 17:38 IMPRESSION: 1. No acute intracranial pathology demonstrated by CT. 2. Consider acute bacterial sinusitis. Chest X-Ray 04/01/23 18:33 IMPRESSION: 1. Cardiomegaly. 2. No acute fracture is seen radiographically. Hip CT 04/01/23 18:46 IMPRESSION: Acute comminuted fracture of the proximal femur, surrounding the femoral stem component of right hip arthroplasty, as above. Hip/Pelvis X-Ray 04/03/23 00:00 IMPRESSION: 1. Internal orthopedic fixation involving a fracture of the upper femur as detailed above. Laboratory Results WBC 4.6 10^3/uL (4.0-10.0) 04/06/23 04:22 RBC 2.41 10^6/uL (4.1-5.3) L 04/06/23 04:22 Hgb 7.1 g/dL (11.5-15.3) L 04/06/23 04:22 Hct 22.1 % (37.0-47.0) L 04/06/23 04:22 MCV 91.7 fl (81-99) 04/06/23 04:22 MCH 29.5 pg (28.0-34.0) 04/06/23 04:22 MCHC 32.1 g/dL (30.0-36.0) 04/06/23 04:22 RDW 14.4 % (12.1-15.1) 04/06/23 04:22 Plt Count 146 10^3/cmm (130-400) 04/06/23 04:22 MPV 11.5 fL (7.4-10.4) H 04/06/23 04:22 Neut % (Auto) 54.4 % 04/06/23 04:22 Lymph % (Auto) 34.9 % 04/06/23 04:22 [place] % (Auto) 7.2 % 04/06/23 04:22 Eos % (Auto) 3.1 % 04/06/23 04:22 Baso % (Auto) 0.2 % 04/06/23 04:22 Neut # (Auto) 2.48 10^3/uL (1.8-7.7) 04/06/23 04:22 Lymph # (Auto) 1.6 10^3/uL (0.8-4.8) 04/06/23 04:22 [place] # (Auto) 0.3 10^3/uL (0.2-0.9) 04/06/23 04:22 Eos # (Auto) 0.1 10^3/uL (0.0-0.8) 04/06/23 04:22 Baso # (Auto) 0.0 10^3/uL (0.0-0.1) 04/06/23 04:22 Nucleated RBC % (auto) 0 % 04/06/23 04:22 Nucleated RBCs # 0.0 /100WBC 04/06/23 04:22 PT 16.20 SECONDS (12.1-14.9) H 04/02/23 05:10 INR 1.26 (0.8-1.2) H 04/02/23 05:10 Sodium 135 mmol/L (136-145) L 04/05/23 06:06 Potassium 3.8 mmol/L (3.5-5.1) 04/05/23 06:06 Chloride 106 mmol/L (98-107) 04/05/23 06:06 Carbon Dioxide 22 mmol/L (22-29) 04/05/23 06:06 Anion Gap 10.8 (5-19) 04/05/23 06:06 BUN 14 mg/dL (8-23) 04/05/23 06:06 Creatinine 0.7 mg/dL (0.5-0.9) 04/05/23 06:06 GFR Calculation Not Reportable 04/05/23 06:06 Glucose 122 mg/dL (65-115) H 04/05/23 06:06 Calculated Osmolality 282 mOsm/kg (285-295) L 04/05/23 06:06 Calcium 7.2 mg/dL (8.5-10.5) L 04/05/23 06:06 Magnesium 2.2 mg/dL (1.7-2.3) 04/02/23 05:10 Total Bilirubin 0.5 mg/dL (0.15-1.2) 04/02/23 05:10 AST 21 U/L (0-32) 04/02/23 05:10 ALT 9 U/L (0-33) 04/02/23 05:10 Alkaline Phosphatase 46 U/L (35-105) 04/02/23 05:10 Total Protein 5.5 g/dL (6.6-8.7) L 04/02/23 05:10 Albumin 3.0 g/dL (3.5-5.2) L 04/02/23 05:10 Globulin 2.5 g/dL (1.3-4.6) 04/02/23 05:10 SARS-CoV-2 Ag (Rapid) negative (Negative) 04/05/23 16:20 Blood Type O Positive 04/06/23 09:29 Rho(D) Type Positive 04/06/23 09:29 Antibody Screen Negative 04/06/23 09:29 Crossmatch See Detail 04/06/23 09:29 Vitals Last Vital Signs Temp 97.9 F 04/06/23 12:00 Pulse 67 04/06/23 12:00 Resp 20 H 04/06/23 12:00 BP 102/55 04/06/23 12:00 Pulse Ox 100 04/06/23 12:00 O2 Del Method Room Air 04/06/23 12:00 O2 Flow Rate 6 04/03/23 09:58 Discharge Plan Discharge Patient Disposition: Xfer SNF Condition: Stable Prescriptions: New Eliquis 5 mg Tablet 2.5 mg PO BID Qty: 28 0RF pantoprazole 40 mg tablet,delayed release (DR/EC) 40 mg PO DAILY 42 Days Qty: 42 0RF acetaminophen 325 mg Tablet 650 mg PO Q6H PRN (Reason: Mild/Mod Pain Or Temp >/= 101) Qty: 60 0RF Continued levothyroxine 75 mcg tablet 75 mcg PO DAILY@0830 citalopram 20 mg tablet 20 mg PO DAILY@0830 raloxifene 60 mg tablet 60 mg PO DAILY@0830 Discontinued diclofenac sodium 1 % gel 2 g TOPICAL BID PRN (Reason: Pain) Discharge Orders: Discharge Order (Routine); Ordered 04/06/23 Ordered By: Usman Santo Referrals: Mario Joshua MD [Primary Care Provider] - 4-7 days Homero Thakkar DO [Physician] - 2 weeks Discharge Diet: Advance as tolerated Discharge Activity: Limit activity as instructed and Use walker/crutches as instructed Patient Instructions: Fall Prevention for Older Adults (GEN), Anemia (GEN), ORIF of Hip Fracture (GEN), Opioid Safety Activity Restrictions/Additional Instructions: You are being discharged from the hospital today during which time you have been under the care of Dr Thakkar. You had a Right hip fracture. You were treated for this injury with Right HIp Plate. You may resume you normal diet (including any special diets as directed by your primary doctor) as well as your home medications. You should follow up with you primary doctor if you have any questions regarding medication you took prior to your stay in the hospital. You may take your pain medication as prescribed. After the first few days, take your pain medication as needed. Do not drive or drink alcohol while taking your pain medication. Your injury may increase your risk of developing a blood clot,or DVT, in your arm or leg. This could potentially dislodge and travel to your lungs and become a life threatening condition called apulmonary embolus,or PE. You have been prescribed eliquis to be taken to prevent this. Frequent movement of the legs will also help prevent this from occurring. If you develop any new or worsening cough, chestpain, bloody sputum or shortness of breath, call 911 or go to the EmergencyRoom. Always keep your surgical incision/dressing clean and dry. If you experience increasing pain at your incision site, redness, swelling, increasing discharge, foul odors, or fevers (greater than 100.4), night sweats or chills you should call the office at the above number. If you feel this is an emergency you should be evaluated in the Emergency Department of a nearby hospital. Orthopedic Patient Instructions Summary: Weight Bearing: WBAT Activity: as tolerated. Diet: regular. Wound Care: Keep dressing clean and dry. Change as needed Anticoagulation: Lovenox Pain Medication: Take only as needed. Ice, rest and elevation will be of great benefit. Please plan to follow-up [facility] Dr Thakkar in 2 weeks for staple removal. You will need to call the clinic [phone] to schedule. Do not hesitate to call the office with any questions or concerns. Please follow-up hemoglobin on Monday. Continue incentive spirometry. Please use walker at all times. Discharge Attestations Time Spent in Discharge Care*: greater than 30 min Quality Metrics Clinical Quality Measures [ No reported AMI, CVA or VTE this stay] Coding Level of Care Code 80230 Total time (in minutes) for Discharge: 40 Diagnoses Acute blood loss anemia D62 Closed right hip fracture S72.001A
[2023-04-06 14:26] LABS: Hematocrit 27.7 % (37.0-47.0); Hemoglobin 8.8 g/dL (11.5-15.3)
== END 2023-04-06 15:50 | disposition skilled nursing facility (03) | DRG 481 ==
LOC: ER 18:46 → MEDSURG 19:38
PROVIDERS: Family Medicine; Orthopaedic Surgery; Admitting Provider Internal Medicine; Emergency Provider Emergency Medicine; PCP Family Medicine; Visit Provider Internal Medicine
PROC: 0QS604Z Reposition Right Upper Femur with Internal Fixation Device, Open Approach (ICD-10-PCS; principal; 2023-04-03 08:00)
DX: S72.001A Fracture of unspecified part of neck of right femur, initial encounter for closed fracture (principal); D62 Acute posthemorrhagic anemia; M97.01XA Periprosthetic fracture around internal prosthetic right hip joint, initial encounter; W18.30XA Fall on same level, unspecified, initial encounter; E03.9 Hypothyroidism, unspecified; F32.A Depression, unspecified; I95.81 Postprocedural hypotension
CPT/HCPCS: 36415; 36430; 51702; 70450; 71045; 73502; 73700; 76000; 80048; 80053; 83735; 85014; 85018; 85025; 85610; 86850; 86900; 86920; 87426; 93005; 96372; 97110; 97161; 97165; 97530; 97535; 99285; C1713; C9113; J0690; J1100; J1170; J1644; J1885; J2270; J2405; J2704; J3010; J3370; J7030; P9016; P9047

== ENCOUNTER → 2023-04-27 10:14 | Outpatient (BNVA) | payer MEDICARE, MEDICAID, SELFPAY | PROVIDERS: PCP Family Medicine; Visit Provider Physician Assistant | DX: M97.01XA Periprosthetic fracture around internal prosthetic right hip joint, initial encounter (principal); X58.XXXA Exposure to other specified factors, initial encounter; Z98.890 Other specified postprocedural states; S72.001A Fracture of unspecified part of neck of right femur, initial encounter for closed fracture | CPT/HCPCS: 73502; 99024 ==

== ENCOUNTER → 2023-05-30 13:30 | Outpatient (BNVA) | payer MEDICARE, MEDICAID, SELFPAY | PROVIDERS: PCP Family Medicine; Visit Provider Physician Assistant | DX: M97.01XA Periprosthetic fracture around internal prosthetic right hip joint, initial encounter (principal); W19.XXXA Unspecified fall, initial encounter; M25.561 Pain in right knee | CPT/HCPCS: 73502; 73562; 99024 ==

== ENCOUNTER → 2023-06-02 13:10 | Outpatient (BNVA) | payer MEDICARE, MEDICAID, SELFPAY | PROVIDERS: PCP Family Medicine; Visit Provider Thoracic Surgery (Cardiothoracic Vascular Surgery) | DX: I96 Gangrene, not elsewhere classified (principal); L89.612 Pressure ulcer of right heel, stage 2 | CPT/HCPCS: 11042; 99213 ==

== ENCOUNTER → 2023-06-09 13:59 | Outpatient (BNVA) | payer MEDICARE, MEDICAID, SELFPAY | PROVIDERS: PCP Family Medicine; Visit Provider Thoracic Surgery (Cardiothoracic Vascular Surgery) | DX: I96 Gangrene, not elsewhere classified (principal); L89.612 Pressure ulcer of right heel, stage 2 | CPT/HCPCS: 11042; 97597 ==

== ENCOUNTER → 2023-06-23 10:14 | Outpatient (BNVA) | payer MEDICARE, MEDICAID, SELFPAY | PROVIDERS: PCP Family Medicine; Visit Provider Thoracic Surgery (Cardiothoracic Vascular Surgery) | DX: I96 Gangrene, not elsewhere classified (principal); L89.612 Pressure ulcer of right heel, stage 2 | CPT/HCPCS: 11042 ==

== ENCOUNTER → 2023-07-07 11:01 | Outpatient (BNVA) | payer MEDICARE, MEDICAID, SELFPAY | PROVIDERS: PCP Family Medicine; Visit Provider Thoracic Surgery (Cardiothoracic Vascular Surgery) | DX: I96 Gangrene, not elsewhere classified (principal); L89.612 Pressure ulcer of right heel, stage 2 | CPT/HCPCS: 11042 ==

== ENCOUNTER → 2023-07-14 10:25 | Outpatient (BNVA) | payer MEDICARE, MEDICAID, SELFPAY | PROVIDERS: PCP Family Medicine; Visit Provider Thoracic Surgery (Cardiothoracic Vascular Surgery) | DX: I96 Gangrene, not elsewhere classified (principal); L89.612 Pressure ulcer of right heel, stage 2 | CPT/HCPCS: 11042; A6021; A6210 ==

== ENCOUNTER → 2023-07-20 11:33 | Outpatient (BNVA) | payer MEDICARE, MEDICAID, SELFPAY | PROVIDERS: PCP Family Medicine; Visit Provider Physician Assistant | DX: Z47.89 Encounter for other orthopedic aftercare (principal); Z96.641 Presence of right artificial hip joint; M25.561 Pain in right knee | CPT/HCPCS: 73502; 99024; 99213 ==

== ENCOUNTER → 2023-07-21 11:02 | Outpatient (BNVA) | payer MEDICARE, MEDICAID, SELFPAY | PROVIDERS: PCP Family Medicine; Visit Provider Nurse Practitioner Family | DX: I96 Gangrene, not elsewhere classified (principal); L89.612 Pressure ulcer of right heel, stage 2 | CPT/HCPCS: 11042; A6210; A6219 ==

== ENCOUNTER → 2023-08-04 10:41 | Outpatient (BNVA) | payer MEDICARE, MEDICAID, SELFPAY | PROVIDERS: PCP Family Medicine; Visit Provider Thoracic Surgery (Cardiothoracic Vascular Surgery) | DX: I96 Gangrene, not elsewhere classified (principal); L89.612 Pressure ulcer of right heel, stage 2 | CPT/HCPCS: 97597; A6021; A6210; A6219 ==

== ENCOUNTER → 2023-08-11 11:06 | Outpatient (BNVA) | payer MEDICARE, MEDICAID, SELFPAY | PROVIDERS: PCP Family Medicine; Visit Provider Thoracic Surgery (Cardiothoracic Vascular Surgery) | DX: I96 Gangrene, not elsewhere classified (principal); L89.612 Pressure ulcer of right heel, stage 2 | CPT/HCPCS: 97597; A6021; A6210 ==

== ENCOUNTER → 2023-08-18 11:07 | Outpatient (BNVA) | payer MEDICARE, MEDICAID, SELFPAY | PROVIDERS: PCP Family Medicine; Visit Provider Thoracic Surgery (Cardiothoracic Vascular Surgery) | DX: L89.612 Pressure ulcer of right heel, stage 2 (principal) | CPT/HCPCS: 97597; A6210; A6219 ==

== ENCOUNTER → 2023-08-21 10:53 | Outpatient (BNVA) | payer MEDICARE, MEDICAID, SELFPAY | PROVIDERS: PCP Family Medicine; Visit Provider Nurse Practitioner | DX: M17.11 Unilateral primary osteoarthritis, right knee; M97.01XA Periprosthetic fracture around internal prosthetic right hip joint, initial encounter; W19.XXXA Unspecified fall, initial encounter | CPT/HCPCS: 20610; 73562; 99214; J1100; J2795; J3301 ==

== ENCOUNTER → 2023-09-01 10:49 | Outpatient (BNVA) | payer MEDICARE, MEDICAID, SELFPAY | PROVIDERS: PCP Family Medicine; Visit Provider Nurse Practitioner Family | DX: L89.612 Pressure ulcer of right heel, stage 2 (principal) | CPT/HCPCS: 97597; A6210; A6219 ==

== ENCOUNTER → 2023-09-08 11:01 | Outpatient (BNVA) | payer MEDICARE, MEDICAID, SELFPAY | PROVIDERS: PCP Family Medicine; Visit Provider Thoracic Surgery (Cardiothoracic Vascular Surgery) | DX: Z09 Encounter for follow-up examination after completed treatment for conditions other than malignant neoplasm (principal); Z87.2 Personal history of diseases of the skin and subcutaneous tissue | CPT/HCPCS: 99211; A6210; A6219 ==